=== PATIENT | male | born 1950 | race Caucasian/White ===

== ENCOUNTER 2020-08-28 05:31 | Inpatient (IN) ==
--- NOTE | 2020-08-01 14:41 | PAT Medication Instructions ---
Medication Instructions Date of Service August 01, 2020 Home Medications Medication Instructions Recorded clobetasol 0.05 % topical ointment 1 appln TOP BID PRN #30 gm 08/26/19 ascorbic acid (vitamin C) 500 mg capsule 500 mg PO QPM aspirin 81 mg tablet,delayed release 81 mg PO QAM cholecalciferol (vitamin D3) 50 mcg (2,000 unit) capsule 2,000 units PO QPM multivitamin 1 tab PO QAM clobetasol 0.05 % topical ointment 1 appln TOP BID PRN amoxicillin 500 mg tablet 2,000 mg PO ONCE mecobalamin (vitamin B12) 1,000 mcg disintegrating tablet,sublingual 500 mcg SUBLINGUAL QPM triamcinolone acetonide 0.1 % topical cream 1 appln TOP TID PRN zinc 50 mg tablet 50 mg PO QPM ibuprofen 400 - 600 mg PO Q6H PRN losartan-hydrochlorothiazide 1 tab PO QAM Continue as directed amoxicillin 500 mg tablet 2,000 mg PO ONCE ASK your surgeon for instructions aspirin 81 mg tablet,delayed release 81 mg PO QAM ibuprofen 400 - 600 mg PO Q6H PRN STOP taking 24 hours before surgery clobetasol 0.05 % topical ointment 1 appln TOP BID PRN triamcinolone acetonide 0.1 % topical cream 1 appln TOP TID PRN DO NOT take the morning of surgery multivitamin 1 tab PO QAM losartan-hydrochlorothiazide 1 tab PO QAM Take evening before surgery ascorbic acid (vitamin C) 500 mg capsule 500 mg PO QPM cholecalciferol (vitamin D3) 50 mcg (2,000 unit) capsule 2,000 units PO QPM mecobalamin (vitamin B12) 1,000 mcg disintegrating tablet,sublingual 500 mcg SUBLINGUAL QPM zinc 50 mg tablet 50 mg PO QPM NOTHING TO EAT OR DRINK AFTER MIDNIGHT Other Notes If you have any questions please call us at [phone] or [phone] or [phone] or [phone]
--- NOTE | 2020-08-02 08:54 | Anesthesiology Consultation ---
Date of Service August 02, 2020 Assessment & Plan (1) Encounter for pre-operative examination: COVID Status: As of 08/02 assessment, patient denies travel to endemic area, known exposure/sick contacts, or symptoms of COVID19. Patient instructed that they and their household members must follow strict social distancing guidelines, wear a mask in public and avoid travel/events/gatherings for 14 days prior to surgery (pt reports small gathering with immediate family only for t hanksgiving, no travel, <8 people). Preoperative COVID19 testing to be completed prior to surgery per surgeon's arrangements. Patient made aware to self-isolate as much as possible between COVID testing and surgery. Chart Review Chart Review: Acceptable Risk for Surgery and Patient seen in Pre Admission Testing Teaching & Discussion Instructed NPO after midnight before surgery, except medications with 15 cc of water. Medication instructions provided according to the PAT guidelines. History Surgery Operation Date: 08/24/20 07:30 Proposed Procedures p Robotic Laparoscopic Assisted Radical Retropubic Prostatectomy, Possible Open, Possible Pelvic Lymph Node Dissection, Possible Suprapubic Tube Placement - Guy Jones, Height/Weight Height: 6 ft Weight: 96.6 kg Allergies Allergy/AdvReac Type Severity Reaction Status Date / Time Sulfa (Sulfonamide Allergy Intermediate HIVES, Verified 07/21/20 09:05 Antibiotics) JOINT STIFFNESS Medications Home Medications Medication Instructions Recorded Confirmed Last Taken ascorbic acid (vitamin C) 500 mg 500 mg PO QPM cap 10/08/18 07/21/20 Unknown capsule aspirin 81 mg tablet,delayed 81 mg PO QAM 10/08/18 07/21/20 Unknown release cholecalciferol (vitamin D3) 50 2,000 units PO QPM 10/08/18 07/21/20 Unknown mcg (2,000 unit) capsule multivitamin 1 tab PO QAM 02/17/19 07/21/20 Unknown clobetasol 0.05 % topical ointment 1 appln TOP BID PRN #30 gm 08/26/19 07/21/20 Unknown amoxicillin 500 mg tablet 2,000 mg PO ONCE tab 05/30/20 07/21/20 Unknown mecobalamin (vitamin B12) 1,000 500 mcg SUBLINGUAL QPM tab 05/30/20 07/21/20 Unknown mcg disintegrating tablet,sublingual triamcinolone acetonide 0.1 % 1 appln TOP TID PRN gm 05/30/20 07/21/20 Unknown topical cream zinc 50 mg tablet 50 mg PO QPM 05/30/20 07/21/20 Unknown ibuprofen 400 - 600 mg PO Q6H PRN 07/21/20 07/21/20 Unknown losartan-hydrochlorothiazide 1 tab PO QAM 07/21/20 07/21/20 Unknown Past Medical History Medical History Allergic contact dermatitis Mild on lower extremities, comes and goes. Atopic dermatitis Chronic venous stasis dermatitis of both lower extremities Diverticulosis Elevated PSA Herniated intervertebral disc of lumbar spine Hyperlipemia No meds currently Hypertension Osteoarthritis Prostate CA Diagnosed 08/25/18 - Deya 3+3 Vitamin D deficiency Exercise / Class Metabolic Activity II 4-5 Yardwork/Stairs/Walk up hill Past Family History Family History Mother , Passed age 86 of [place] Myocardial infarction Father , Passed age 89 of CHF CHF (congestive heart failure) Arthritis Hypertension Brother No problems noted. Brother No problems noted. Brother No problems noted. Sister Thrombocythemia, essential "preleukemia" Bone marrow disorder Son No problems noted. Daughter No problems noted. Past Surgical History Surgical History History of colonoscopy MULTIPLE History of hernia repair 10/2010 Left inguinal hernia repair History of total hip replacement Right - 04/20/2010, Left 07/27/2010 Past Anesthesia History No Hx of Anesthesia Complications and No Family Hx of Anesthesia Complications History of PONV No Hx of PONV and No Hx of Motion Sickness Social History Smoking Status: Never smoker Do You Dip or Chew Tobacco: No Hx Alcohol Use: No Hx Substance Use: No Review of Systems Pt denies any recent chest pain, shortness of breath, palpitations, fever, URI, or uncontrolled acid reflux. +mild dry cough in AM, pt feels may be 2/2 wood burning stove/dry air Physical Exam Vital Signs BP: 133/82 P: 77bpm SPO2: 95% RA T: 98.2 F R: 12 ENMT Mouth: no dental restorations, no chipped teeth and no loose teeth Thyromental Distance: > or= 3.5 Finger Breadths Mallampati Class: II Neck normal visual inspection and + limited neck extension (mildly) Respiratory normal respiratory effort, lungs clear to auscultation Cardiovascular RRR, no murmur, no edema Testing Laboratory Results 08/02/20 08:20 08/02/20 09:06 Urine Color Yellow 08/02/20 08:20 Urine Appearance Clear (Clear) 08/02/20 08:20 Urine pH 5.5 (4.5-7.5) 08/02/20 08:20 Ur Specific [place] 1.023 (1.000-1.030) 08/02/20 08:20 Urine Protein Negative (Negative) 08/02/20 08:20 Urine Glucose (UA) Negative (Negative) 08/02/20 08:20 Urine Ketones Negative (Negative) 08/02/20 08:20 Urine Nitrite Negative (Negative) 08/02/20 08:20 Ur Leukocyte Esterase Negative (Negative) 08/02/20 08:20 08/02/20 08:20 Urine Culture - Final Urine,Clean Catch No growth - less than 1,000 colonies/mL. Electrocardiogram Date: 08/02/20 Findings: + NSR @ (72bpm) 1st degree AV block. No significant change from 2009 EKG. Chest X-Ray Date: 08/02/20 Findings: + NAD
--- NOTE | 2020-08-02 09:48 | XRay Report ---
XR chest Pre-admission PA/Lat HISTORY: Preop. COMPARISON: Chest 03/29/2010. FINDINGS: The lungs are clear. Cardiac silhouette is normal in size. No pleural effusions. No pneumot horax. IMPRESSION: No acute process. ACT 112: Negative or not required by law. Electronically signed by: Raymond Martin M.D. 08/02/2020 9:47 AM
[2020-08-02 10:36] LABS: Basophils # (auto) 0.03 K/uL (0-0.2); Basophils % (auto) 0.5 %; Eosinophils # (auto) 0.24 K/uL (0-0.5); Eosinophils % (auto) 4.4 %; Hematocrit (blood only) 44.8 % (42-52); Hemoglobin 15.2 g/dL (14.0-18.0); Immature Granulocytes # (auto) 0.01 K/uL (0.00-0.02); Immature Granulocytes % (auto) 0.2 %; Lymphocytes # (auto) 1.64 K/uL (1.2-3.4); Lymphocytes % (auto) 29.8 %; Mean Corpuscular Hemoglobin 30.8 pg (25-34); Mean Corpuscular Hgb Conc 33.9 g/dL (32-36); Mean Corpuscular Volume 90.9 fL (80-100); Mean Platelet Volume 12.8 fL (7.4-10.4); Monocytes # (auto) 0.86 K/uL (0.11-0.59); Monocytes % (auto) 15.6 %; Neutrophils # (auto) 2.72 K/uL (1.4-6.5); Neutrophils % (auto) 49.5 %; Platelet Count 160 K/uL (130-400); RDW Coefficient of Variation 13.3 % (11.5-14.5); RDW Standard Deviation 43.8 fL (36.4-46.3); Red Blood Count 4.93 M/uL (4.7-6.1)
[2020-08-02 10:38] LABS: Appearance Urine Clear (Clear); Bilirubin Urine Negative (Negative); Blood Urine Negative (Negative); Color Urine Yellow; Glucose Urine UA Negative (Negative); Ketones Urine Negative (Negative); Leukocyte Esterase Urine Negative (Negative); Nitrite Urine Negative (Negative); Protein Urine Negative (Negative); Specific Gravity Urine 1.023 (1.000-1.030); Urobilinogen Urine Negative (Negative); pH Urine 5.5 (4.5-7.5)
[2020-08-02 10:46] LABS: BUN Creatinine Ratio 20.2 (10-20); Creatinine Clr Calc Pharmacy 88.8 ml/min; Est GFR (African American) 96.6; Est GFR (Non-African American) 83.4; Potassium 3.8 mmol/L (3.5-5.1)
--- NOTE | 2020-08-02 21:33 | Electrocardiogram Report ---
Test Reason : Blood Pressure : / mmHG Vent. Rate : 072 BPM Atrial Rate : 072 BPM P-R Int : 216 ms QRS Dur : 094 ms QT Int : 376 ms P-R-T Axes : 044 030 045 degrees QTc Int : 411 ms Sinus rhythm with 1st degree A-V block Otherwise normal ECG When compared with ECG of 29-MAR-2010 12:01, No significant change was found Confirmed by Ronni Prado ([id number]) on 08/02/2020 9:33:06 PM Referred By: Guy Jones Confirmed By:Ronni Prado
[~2020-08-28 05:31] MED LIST: HEPARIN SOD 5,000 UNIT/0.5 ML VIAL SQ SCH; LACTATED RINGER'S 1,000 ML IV SCH; LR 500ML BOLUS, THEN 15ML/HR IV SCH; ceFAZolin 2000MG 2,000 MG/15 ML SYR IV SCH
[2020-08-28] MEDS ORDERED: HEPARIN SOD 5,000 UNIT/0.5 ML VIAL ONE (05:43)
[2020-08-28] MEDS ORDERED: ceFAZolin 2,000 MG/15 ML IV PUSH IV ONE (05:44)
[2020-08-28] MEDS ORDERED: LACTATED RINGER'S 1,000 ML IV SCH (06:00)
[2020-08-28] MEDS ORDERED: HEPARIN SOD 5,000 UNIT/0.5 ML VIAL SQ SCH (06:00)
[2020-08-28] MEDS ORDERED: ceFAZolin 2000MG 2,000 MG/15 ML SYR IV SCH (06:00)
[2020-08-28] MEDS ORDERED: BUPIVACAINE 0.5 % 5 MG/1 ML MPF 30ML VIAL ONE (07:03)
[2020-08-28] MEDS ORDERED: PROPOFOL IV EMULSION 10 MG/ML 20 ML VIAL IV ONE (07:03)
[2020-08-28] MEDS ORDERED: GLYCOPYRROLATE 0.2 MG/ML VIAL ONE (07:03)
[2020-08-28] MEDS ORDERED: LIDOCAINE HCL 2% 2 ML VIAL/AMP(20MG/ML) INFIL ONE (07:03)
[2020-08-28] MEDS ORDERED: fentaNYL citrate 100 MCG/2 ML VIAL ONE (07:03)
[2020-08-28] MEDS ORDERED: NEOSTIGMINE METHYLSULFATE 5 MG/5 ML SYR ONE (07:03)
[2020-08-28] MEDS ORDERED: DEXAMETHASONE SOD INJ 4 MG/ML VIAL ONE (07:03)
[2020-08-28] MEDS ORDERED: ONDANSETRON INJ 2 MG/ML 2 ML VIAL ONE (07:03)
[2020-08-28] MEDS ORDERED: MIDAZOLAM HCL 1 MG/ML 2ML VIAL ONE (07:03)
--- NOTE | 2020-08-28 07:18 | History & Physical Report ---
Date of Service August 28, 2020 Assessment & Plan (1) Adenocarcinoma of prostate: Risks and benefits discussed at length for procedure. These include bleeding, infection, injury to surrounding tissues or organs, and risks associated with anesthesia. Patient states understanding and agrees to proceed. Will sign consent and proceed. Robot Asst. Laparoscopic Radical prostatectomy with pelvic lymph node dissection. See office notes for full discussion. History of Present Illness Primary Care Provider: Oneal Rosales MD Patient here for procedure. No changes in medical issues. No major changes in urinary issues. Continued issues and concerns. No change in pain or discomfort. No severe fevers or chills. No chest pain or shortness of breath. Risks and benefits discussed at length for procedure. These include bleeding, infection, injury to surrounding tissues or organs, and risks associated with anesthesia. Patient and/or family states understanding and agrees to proceed. Consent and supporting information completed. Allergies Allergy/AdvReac Type Severity Reaction Status Date / Time Sulfa (Sulfonamide Allergy Intermediate HIVES, Verified 08/21/20 09:40 Antibiotics) JOINT STIFFNESS Home Medications Medication Instructions Recorded Confirmed Type ascorbic acid (vitamin C) 500 mg 500 mg PO QPM cap 10/08/18 08/28/20 History capsule aspirin 81 mg tablet,delayed 81 mg PO QAM 10/08/18 08/28/20 History release cholecalciferol (vitamin D3) 50 2,000 units PO QPM 10/08/18 08/28/20 History mcg (2,000 unit) capsule multivitamin 1 tab PO QAM 02/17/19 08/28/20 History clobetasol 0.05 % topical ointment 1 appln TOP BID PRN #30 gm 08/26/19 08/28/20 Rx amoxicillin 500 mg tablet 2,000 mg PO ONCE tab 05/30/20 08/28/20 History mecobalamin (vitamin B12) 1,000 500 mcg SUBLINGUAL QPM tab 05/30/20 08/28/20 History mcg disintegrating tablet,sublingual triamcinolone acetonide 0.1 % 1 appln TOP TID PRN gm 05/30/20 08/28/20 History topical cream zinc 50 mg tablet 50 mg PO QPM 05/30/20 08/28/20 History ibuprofen 400 - 600 mg PO Q6H PRN 07/21/20 08/28/20 History losartan-hydrochlorothiazide 1 tab PO QAM 07/21/20 08/28/20 History ciprofloxacin HCl 500 mg tablet 500 mg PO BID #20 tab 08/21/20 Rx Past Med/Surg History Medical History Allergic contact dermatitis Mild on lower extremities, comes and goes. Atopic dermatitis Chronic venous stasis dermatitis of both lower extremities Diverticulosis Elevated PSA Herniated intervertebral disc of lumbar spine Hyperlipemia No meds currently Hypertension Osteoarthritis Prostate CA Diagnosed 08/25/18 - Deya 3+3 Vitamin D deficiency Surgical History H/O bilateral hip replacements History of colonoscopy MULTIPLE History of hernia repair 10/2010 Left inguinal hernia repair History of total hip replacement Right - 04/20/2010, Left 07/27/2010 Family History Mother , Passed age 86 of [place] Myocardial infarction Father , Passed age 89 of CHF CHF (congestive heart failure) Arthritis Hypertension Brother No problems noted. Brother No problems noted. Brother No problems noted. Sister Thrombocythemia, essential "preleukemia" Bone marrow disorder Son No problems noted. Daughter No problems noted. 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 No Acute illness. . HEENT: Inspection normal. Normal inspection of face. Normal inspection of neck. Psychologic: Normal affect/No change in mentation. Respiratory: No use of accessory muscles. No respiratory changes or exacerbation or changes with tachypnea or dyspnea. Cardiovascular: No tachycardia Skin: [place] and Dry. No new rashes or visible lesions. Abdomen: Normal inspection. No guarding. Results & Data ([facility]) Vital Signs (Past 12 Hours) Vital Signs Temp Pulse Resp BP Pulse Ox 08/28/20 06:06 36.6 C 80 18 128/80 96 PG Care Time/CCT Total # of Minutes Spent Total Time Spent with Patient: Total time spent is greater than 50% in coordination of care (as documented) at patient's floor/unit and/or counseling p atient: Coding Level of Care Code 42068 Initial Inpt Care Lvl 3 Diagnoses Adenocarcinoma of prostate C61
[2020-08-28] MEDS ORDERED: HYDROmorphone INJ 2 MG/ML SYR/VIAL ONE (08:10)
[2020-08-28] MEDS ORDERED: fentaNYL citrate 100 MCG/2 ML VIAL IV PRN (08:49)
[2020-08-28] MEDS ORDERED: METOCLOPRAMIDE HCL INJ 5 MG/ML 2 ML VIAL IV PRN (08:49)
[2020-08-28] MEDS ORDERED: PROMETHAZINE HCL 12.5 MG in SODIUM CHLORIDE 0.9% 50 ML IV PRN (08:49)
[2020-08-28] MEDS ORDERED: ePHEDrine sulfate 50 MG/ML AMP IV PRN (08:49)
[2020-08-28] MEDS ORDERED: ONDANSETRON INJ 2 MG/ML 2 ML VIAL IV PRN ×2 (08:49→12:57)
[2020-08-28] MEDS ORDERED: HYDROmorphone INJ 2 MG/ML SYR/VIAL IV PRN (08:49)
[2020-08-28] MEDS ORDERED: ATROPINE SULFATE 0.1 MG/ML 10ML SYR IV PRN (08:49)
[2020-08-28] MEDS ORDERED: ROCURONIUM BROMIDE 10 MG/ML 5 ML VIAL IV ONE (10:00)
--- NOTE | 2020-08-28 11:46 | Operative Report ---
PG Post Operative Report Pre & Post Diagnosis Operation Date: 08/28/20 07:30 Pre-Op Diagnosis: Prostate Cancer Post-Op Diagnosis: Prostate Cancer I identified the patient and participated in the time-out.: Yes Procedure Operation Date: 08/28/20 07:30 Actual Procedures p Robotic Laparoscopic Assisted Prostatectomy and Pelvic Lymph Node Dissection and extensive lysis of adhesions. - Guy Jones DO Surgeon Guy Jones, II, DO Transport Assistant Kirt VARGAS Estimated Blood Loss 30 Findings Consistent with Post-Op Diagnosis Extensive Adhesions to mesh plug in left inguinal cannel. Specimens Prostate and Seminal Vesicle Left Pelvic Lymph Nodes Right Pelvic Lymph Nodes. Drains 20 Cueto catheter. Anesthesia Type General Complications none Disposition Disposition: Recovery Room Indications Patient with Prostate Cancer. Risk and benefits were discussed at length. Patient elected to undergo robotic assisted laparoscopic Radical Prostatectomy. Description of Procedure The patient was brought to the operative suite and placed under general endotracheal intubation anesthesia in the supine position. The patient was transferred to the dorsal lithotomy position. At this point, the patient prepped and draped in the usual sterile fashion and a timeout was completed. Preoperative antibiotics of Ancef 2 grams had been given. DALI's and SCD's were placed on the patient's lower extremities. A catheter was placed using sterile technique. With the time out completed the patient was placed into Trendelenburg and the skin at the umbilicus was anesthetized. A small incision was made superior to the umbilicus. A Varess Needle was placed and confirmed to be in the abdominal cavity. Water drop test passed. The Abdominal cavity was insufflated to 15 mmHG. The camera port was then placed. A laparoscopic camera was placed into the port and the abdominal cavity inspected. No concerning features were noted. At this point, the skin was marked for port placement and 8mm working ports were placed. The skin was anesthetized down to fascia and an approx 1cm incision was made to place the 3 x 8mm ports. A 12 mm and 5 mm assistant corporation counsel ports were also placed in similar fashion under direct visualization. The patient was transferred into steep Trendelenburg position and the legs lowered. The robot was positioned and docked. The camera was placed and all trocars were positioned under direct visualization. Aretha VARGAS was integral in port placement, camera utilization, and docking procedure. She remained in sterile attire and then proceeded to assist the remainder of the case. At this point, I transitioned to the robotic console. At this point, the sigmoid colon was mobilized superiorly and the pelvis assessed. Adhesions were freed to allow mobilization. A significant amount of adhesions was noted to the mesh blood coming from an inguinal hernia repair on the left side. Blunt dissection was utilized to free these. Greater than 35 minutes required for complete lysis and mobilization of colon prior to beginning the remainder of the case. The peritoneum in the midline was opened between rectum and bladder and the vas deferens and seminal vesicles exposed. These were dissected with blunt technique. The vas was clipped and cut and mobilized. Cautery was used to assist dissection avoiding the tissue posteriorly near the rectum. The tissues lateral to the seminal vesicles were clipped with a hemolock and all bleeding controlled. This was taken as inferior as possible from this position. The medial umbilical ligaments were then identified and the peritoneum directly lateral on the right followed by the left was opened. The tissues were bluntly dissected to free the bladder's lateral attachments. This was taken down to the pubic bone and exposed the endopelvic fascia bilaterally. The medial ligaments were cut and the bladder dropped. The tissues was dissected anterior to the prostate. The endopelvic fascia on each side was then opened and the lateral edges of the prostate dissected. The Dorsal venous complex of the prostate was dissected and assessed. A 2-0 suture was used to ligate the vessels. A suspension stitch was used and clipped. Electrocautery was used to cut the anterior attachments, the puboprostatic ligaments, and venous tissues. The cueto was manipulated to better visual the bladder neck and dissection was taken using electrocautery. The bladder neck was opened and dissected from the prostate. The UO's were identified and dissection taken in a direction to avoid each side. The vas stump and seminal vesicles were exposed and used to assist in traction to dissect. The prostatic pedicles were better exposed. The posterior prostate was dissected. An attempt was made to limit cautery and utilize cold dissection of the lateral posterior prostate to attempt preservation of the neurovascular bundle bilaterally. Hemolock clips were utilized to clip the prostatic pedicle bilaterally. The dissection was taken to the apex of the prostate. The anterior prostate was released and the urethra exposed. Cold cutting was used to open the anterior portion and expose the catheter. This was removed and the urethra incised. The prostate was further freed and grasped and removed from the field. The entire dissection bed was inspected.Hemostatic agent was placed in the region. No areas of injury or bleeding was noted. Care was taken to examine the perirectal tissues. A probe was placed and no injuries or other issues were observed. The bladder neck and urethra were then approximated with a running barbed suture starting at the 5 o'clock position and moving to the 12 o'clock on each side. This was tied at the anterior portion. A leak test was completed without any evidence of issues. The right and left pelvic lymph tissue was identified in relation to the iliac vessels. Distal dissection was taken to the Node of [place]. Inferiorly the obtorator vessels and nerve were identified. Lymphatic tissue within the surround fat tissue was dissected. This packet of tissues were sent for pathologic analysis and lymph node assessment. This was done for each separate side. Hemostatic agent was placed on the exposed vessels. The entire dissection space was inspected one final time. No bleeding or injuries or areas of concern were noted. No tumor or other concerning features were noted. At this point, the robot was undocked and moved away from the patient. The patient was taken out of Trendelenberg. The port sites were all assessed laparoscopically. The endoscopic bag was moved into the midline port. The 10mm port site was closed with the Iván Delatorre device. The other ports were assessed and no issues observed. The umbilical incision was opened further exposing fascia which was then opened in order to removed the prostate in the bag. The prostate was removed. A running PDS suture was used to close fascia. The skin at each site was closed with catina. The area was cleaned and bandages placed on each incision. The patient was cleaned and bandaged, aroused from anesthesia, and transferred to the pacu in stable condition having tolerated the procedure well with no complications. I was present and participated in all aspects of the procedure. Aretha VARGAS was critical in the portions as mentioned above. Will plan to observe postoperatively and monitor. Cueto to be remain in place until followup. I attest to the content of the Intraoperative Record and any orders documented therein. Any exceptions are noted below.
[2020-08-28 12:15] LABS: Basophils # (auto) 0.01 K/uL (0-0.2); Basophils % (auto) 0.1 %; Eosinophils # (auto) 0.03 K/uL (0-0.5); Eosinophils % (auto) 0.2 %; Hematocrit (blood only) 41.8 % (42-52); Hemoglobin 14.3 g/dL (14.0-18.0); Immature Granulocytes # (auto) 0.03 K/uL (0.00-0.02); Immature Granulocytes % (auto) 0.2 %; Lymphocytes # (auto) 1.16 K/uL (1.2-3.4); Lymphocytes % (auto) 7.4 %; Mean Corpuscular Volume 90.5 fL (80-100); Mean Platelet Volume 12.2 fL (7.4-10.4); Monocytes # (auto) 0.54 K/uL (0.11-0.59); Monocytes % (auto) 3.4 %; Neutrophils # (auto) 13.96 K/uL (1.4-6.5); Neutrophils % (auto) 88.7 %; Platelet Count 156 K/uL (130-400); RDW Coefficient of Variation 13.5 % (11.5-14.5); RDW Standard Deviation 44.3 fL (36.4-46.3); Red Blood Count 4.62 M/uL (4.7-6.1); White Blood Count 15.73 K/uL (4.8-10.8)
[2020-08-28 12:22] LABS: Mean Corpuscular Hgb Conc 34.2 g/dL (32-36)
[2020-08-28 12:24] LABS: Calcium 8.3 mg/dl (8.5-10.1); Creatinine Clr Calc Pharmacy 68.9 ml/min; Est GFR (African American) 79.6; Est GFR (Non-African American) 68.7; Potassium 3.4 mmol/L (3.5-5.1)
[2020-08-28] MEDS ORDERED: ACETAMINOPHEN 325 MG TAB PO PRN (12:57)
[2020-08-28] MEDS ORDERED: MoRPHine SULFATE 2 MG/ML CARP IV PRN (12:57)
[2020-08-28] MEDS ORDERED: oxyCODONE HCL IR 5 MG TAB (IMMEDIATE RELEASE) PO PRN (12:57)
--- NOTE | 2020-08-28 13:22 | Anesthesiology Progress Note ---
Date of Service August 28, 2020 Anesthesia Post Procedure Vital Signs Vital Signs: Temp Pulse Pulse Pulse Resp BP Pulse Ox 08/28/20 13:17 36.4 C L 80 16 155/83 H 93 08/28/20 12:45 36.4 C L 80 16 153/84 H 92 08/28/20 12:30 85 15 150/77 H 94 08/28/20 12:15 36.4 C L 83 16 150/86 H 93 08/28/20 12:05 89 16 136/93 94 08/28/20 11:55 97 H 16 117/78 94 08/28/20 11:48 36.5 C 106 H 12 125/80 93 08/28/20 06:06 36.6 C 80 18 128/80 96 Transfer of Care Handoff Completed per policy Notes Mental Status: alert / awake / arousable and participated in evaluation Patient Amnestic to Procedure: Yes Nausea / Vomiting: adequately controlled Pain: adequately controlled Airway Patency, RR, SpO2: stable & adequate BP & HR: stable & adequate Hydration State: stable & adequate Anesthetic Complications: no major complications apparent
[2020-08-28] MEDS: LACTATED RINGER'S 1,000 ML IV SCH ×3 (14:06→23:21)
[2020-08-28] MEDS: ceFAZolin 2000MG 2,000 MG/15 ML SYR IV SCH ×2 (14:34→23:20)
[2020-08-28] MEDS: MoRPHine SULFATE 4 MG/ML 1 ML CARP\\VIAL IV PRN ×2 (15:40→22:11)
[2020-08-28 15:59] VITALS: O2SAT 91
[2020-08-28] MEDS: HEPARIN SOD 5,000 UNIT/0.5 ML VIAL SQ SCH (20:41)
[2020-08-28] MEDS ORDERED: CHOLECALCIFEROL 1,000 UNITS 25 MCG TAB PO SCH (21:00)
[2020-08-28] MEDS ORDERED: ASCORBIC ACID 500 MG TAB PO SCH (21:00)
[2020-08-28] MEDS ORDERED: NON-FORMULARY MEDICATION (Mecobalamin (Vitamin B12) 1,000 mcg tablet,disintegrating) SL SCH (21:00)
[2020-08-28] MEDS: SIMETHICONE 80 MG CHEW PO PRN (22:38)
[2020-08-29 03:12] VITALS: TEMP 98.1
[2020-08-29 06:49] LABS: Basophils # (auto) 0.01 K/uL (0-0.2); Basophils % (auto) 0.1 %; Eosinophils # (auto) 0.02 K/uL (0-0.5); Eosinophils % (auto) 0.2 %; Hemoglobin 12.3 g/dL (14.0-18.0); Immature Granulocytes # (auto) 0.01 K/uL (0.00-0.02); Immature Granulocytes % (auto) 0.1 %; Lymphocytes # (auto) 1.42 K/uL (1.2-3.4); Lymphocytes % (auto) 15.9 %; Mean Corpuscular Hemoglobin 30.9 pg (25-34); Mean Corpuscular Hgb Conc 34.2 g/dL (32-36); Mean Corpuscular Volume 90.5 fL (80-100); Mean Platelet Volume 12.2 fL (7.4-10.4); Monocytes # (auto) 1.77 K/uL (0.11-0.59); Monocytes % (auto) 19.8 %; Neutrophils # (auto) 5.71 K/uL (1.4-6.5); Neutrophils % (auto) 63.9 %; Platelet Count 149 K/uL (130-400); RDW Coefficient of Variation 13.5 % (11.5-14.5); RDW Standard Deviation 44.8 fL (36.4-46.3); Red Blood Count 3.98 M/uL (4.7-6.1); White Blood Count 8.94 K/uL (4.8-10.8)
[2020-08-29] MEDS: oxyCODONE HCL IR 5 MG TAB (IMMEDIATE RELEASE) PO PRN ×2 (07:07→14:50)
[2020-08-29 07:23] LABS: BUN Creatinine Ratio 13.8 (10-20); Calcium 8.3 mg/dl (8.5-10.1); Est GFR (African American) 104.2; Est GFR (Non-African American) 89.9; Potassium 3.9 mmol/L (3.5-5.1)
[2020-08-29 08:06] VITALS: BP 126/63
[2020-08-29] MEDS: HEPARIN SOD 5,000 UNIT/0.5 ML VIAL SQ SCH ×2 (08:16→09:44)
[2020-08-29] MEDS ORDERED: MULTIVITAMIN TAB PO SCH (09:00)
[2020-08-29] MEDS ORDERED: LOSARTAN/HCTZ 50/12.5MG TAB PO SCH (09:00)
[2020-08-29] MEDS: LACTATED RINGER'S 1,000 ML IV SCH (09:09)
--- NOTE | 2020-08-29 09:43 | Urology Progress Note ---
Date of Service August 29, 2020 Assessment & Plan (1) Adenocarcinoma of prostate: 70 yo M POD #1 s/p Robotic Laparoscopic Assisted Prostatectomy and Pelvic Lymph Node Dissection with Dr. Jones. - Doing well, progressing as expected - Afebrile, labs reviewed and as expected - Surgical incisions appropriate - Maintain Shaw catheter - Encouraged OOB ambulation in hallway, incentive spirometer - Tolerating clear liquid diet this AM. Given belching and bloating, will slowly advance diet to full liquids at lunch and monitor - Expected clinical course reviewed, all questions answered - Follow-up appointments in place - Will reassess later this afternoon and plan for discharge to home with Shaw catheter if he continues to progress, either later today or tomorrow pending reassessment Admission and Anticipated Discharge Date Admission Date: August 28, 2020 Subjective 70 yo M POD #1 s/p Robotic Laparoscopic Assisted Prostatectomy and Pelvic Lymph Node Dissection with Dr. Jones. Pt seen and examined at bedside this AM. Awake, alert, and sitting up in bed eating breakfast. Reports some upper abdominal discomfort, bloating and belching last night and today. Was given PRN Simethicone yesterday with some relief. Denies flatus or BM. Tolerated clear liquid diet, no nausea or vomiting. No chest pain or shortness of breath. Mild incisional pain. Utilized PO oxycodone 10 mg this morning and reports relief. Shaw catheter intact, patent and draining clear pink tinged urine. Tolerating Shaw catheter. Has been OOB standing, but has not ambulated hallway yet. No fever or chills. No additional concerns today. Chart review: Afebrile. Creatinine 0.80, Hgb 12.3, WBC 8.94 Review of Systems Constitutional: as per Subjective / HPI Respiratory: as per Subjective / HPI Cardiovascular: as per Subjective / HPI Gastrointestinal: as per Subjective / HPI Genitourinary: + as per Subjective / HPI Physical Exam Constitutional: well developed and well nourished; no acute distress and not ill appearing Respiratory: normal respiratory effort and able to speak in complete sentences; no respiratory distress and no labored breathing Cardiovascular: Extremities: no calf tenderness and no pedal edema SCDs in place Gastrointestinal (Abdomen): Inspection/Auscultation: abdomen normal to inspection and + abdomen distended (Mild distention mid to upper abdomen) Percussion/Palpation: + abdomen tender (mild tenderness near incisions and mid to upper abdomen) and abdomen soft; no guarding Musculoskeletal: Head/Neck/Chest: normocephalic and head atraumatic Extremities: extremities normal to inspection Skin: Surgical incisions: dressings C/D/I. Incisions well approximated, catina intact. No erythema, warmth or drainage. Neurologic: moves all extremities and awake Psychiatric: Orientation: alert and oriented x 3 Genitourinary: Shaw catheter intact, patent and draining clear pink tinged urine. Results & Data ([facility]) Vital Signs (Past 12 Hours) Vital Signs Temp Pulse Resp BP Pulse Ox 08/29/20 08:05 36.7 C 71 16 126/63 91 08/29/20 03:11 36.7 C 77 18 122/67 91 08/28/20 23:29 36.5 C 75 18 124/59 L 91 PG Care Time/CCT Total # of Minutes Spent Total Time Spent with Patient: Total time spent is greater than 50% in coordination of care (as documented) at patient's floor/unit and/or counseling patient: Coding Level of Care Code 57671 Subseq Hosp Care Lvl 2 Diagnoses Adenocarcinoma of prostate C61
[2020-08-29] MEDS: SIMETHICONE 80 MG CHEW PO PRN (10:55)
[2020-08-29 17:05] VITALS: PULSE 85
--- NOTE | 2020-08-30 13:59 | Discharge Summary ---
Date of Service August 30, 2020 Admission HPI Per Admitting Provider Patient here for procedure. No changes in medical issues. No major changes in urinary issues. Continued issues and concerns. No change in pain or discomfort. No severe fevers or chills. No chest pain or shortness of breath. Risks and benefits discussed at length for procedure. These include bleeding, infection, injury to surrounding tissues or organs, and risks associated with anesthesia. Patient and/or family states understanding and agrees to proceed. Consent and supporting information completed. Admission Exam Per Admitting Provider See H&P Principal Diagnosis Prostate Cancer Discharge Exam General: Alert in no acute distress. HEENT: Normocephalic Atraumatic. Inspection normal. Psychologic: Normal affect. Skin: [place] and Dry. No rashes or visible lesions. Abdomen: Soft Non-distended. No rebound or guarding. Discharge Data Allergies Allergy/AdvReac Type Severity Reaction Status Date / Time Sulfa (Sulfonamide Allergy Intermediate HIVES, Verified 08/21/20 09:40 Antibiotics) JOINT STIFFNESS Procedures Performed Operation Date: 08/28/20 07:30 Actual Procedures p Robotic Laparoscopic Assisted Prostatectomy and Pelvic Lymph Node Dissection(Not Applicable) - Guy Jones, DO Hospital Course (1) Adenocarcinoma of prostate: 70 yo M POD #1 s/p Robotic Laparoscopic Assisted Prostatectomy and Pelvic Lymph Node Dissection with Dr. Jones. - Doing well, progressing as expected - Afebrile, labs reviewed and as expected - Surgical incisions appropriate - Maintain Shaw catheter - Encouraged OOB ambulation in hallway, incentive spirometer - Tolerating clear liquid diet this AM. Given belching and bloating, will slowly advance diet to full liquids at lunch and monitor - Expected clinical course reviewed, all questions answered - Follow-up appointments in place - Will reassess later this afternoon and plan for discharge to home with Shaw catheter if he continues to progress, either later today or tomorrow pending reassessment Total Time Total Time Spent Total Time Spent (In Minutes): 10 minutes Total Time Includes: Examination of the Patient, Discharge Planning, Medication Reconciliation and Communication With Other Providers Discharge Plan Discharge Items Patient Disposition: Home - Self-Care Reason For Visit: Prostate Cancer Discharge Diagnosis: Prostate Cancer Activity: Per Instructions section Lifting: No more than 25 pounds Bathing Comment: No tub baths or soaking, okay to shower tomorrow. Sexual Activity: Wait until after follow-up appointment Exercise/Sports: Wait until after follow-up appointment Driving/Machine Use: Do not drive while on narcotic pain medication Non-emergency contact: Surgeon and Urologist Call non-emergency contact if: you have any medication questions, your pain is not controlled, your temperature is above 101, your wound has increased redness, your wound has increased drainage and your wound pain has increased Follow-up/Referrals: Oneal Rosales III, MD [Primary Care Provider] - Guy Jones DO [Physician] - 09/12/20 2:15 pm (Dr. Jones will call between 9 am - 4 pm) [facility],Nurse [FAKE FOR SCHEDULES] - 09/05/20 1:40 pm Diet: Regular Addtl Attending Provider Instructions: Please take all medications as prescribed and keep all follow-ups as scheduled. Please call our office at [phone] with any questions, concerns or need to reschedule appointments for any reason. We are happy to assist you We have sent an antibiotic to your pharmacy of choice. Please begin antibiotic as prescribed the day BEFORE your scheduled voiding trial at [facility]. Please continue antibiotic every 12 hours through the day AFTER your voiding trial. Activity: We recommend having someone with you for the first few days after surgery to help care for you. For the first 2 weeks after surgery, we would like you to get up and walk around your house. However, we recommend limit physical activity that would increase your heart rate. This will allow your body to rest and heal. Take naps if you feel tired. Don't lift anything heavier than 25 pounds, mow the law or ride a bicycle until your follow-up appointment. Please avoid long car rides. Home Care: Unless directed otherwise, drink 6 to 8 glasses of water a day (enough to keep your urine light colored). This will also help keep a healthy flow of urine. We recommend using a stool softener for the first two weeks to avoid constipation. Shaw Catheter or Suprapubic Catheter care: Keep the catheter well secured with either a leg back or leg strap with large bag. Empty your bag when it's about half full. You may notice some blood in the bag. This is normal after surgery and while the catheter is in place. Use mild soap (such as Dove or Dial) and water to wash the catheter and the head of your penis daily, or more frequently if needed. Return to your normal diet, we encourage good protein intake to promote healing. You may shower as normal. Please avoid tub baths or soaking until catheter removed and incisions well healed. Wearing sweat pants while you have the catheter is recommended, they will be more comfortable. Follow-up Your follow up appointments for having your catheter removed, and follow up with your physician should already be scheduled. If you have any questions regarding this, please contact our office. Your final pathology report will be discussed at your physician follow-up appointment. Call [facility] at [phone] right away if you have any of the following: Chest pain or trouble breathing (call 911 or go to the hospital) Fever of 101F or higher, uncontrolled vomiting Heavy bleeding, clots, or bright red blood from the catheter Catheter that falls out or stops draining Foul-smelling discharge from your catheter Redness, swelling, warmth, or increased pain at your incision site Drainage, pus, or bleeding from your incision Pending Studies at Discharge: Yes Studies:: Pathology Stand-Alone Forms: My [facility] Hactus, Smoking Cessation Medications and DC Order Prescriptions: New oxycodone-acetaminophen [Percocet] 5-325 mg tablet 1 tab PO TID PRN (Reason: pain) Qty: 14 RF: 0 docusate sodium [Colace] 100 mg capsule 100 mg PO BID Qty: 60 RF: 0 ciprofloxacin HCl 500 mg tablet 500 mg PO BID 3 Days Qty: 6 RF: 0 Continued aspirin 81 mg tablet,delayed release (DR/EC) 81 mg PO QAM RF: 0 ascorbic acid (vitamin C) 500 mg capsule 500 mg PO QPM RF: 0 cholecalciferol (vitamin D3) 2,000 unit capsule 2,000 units PO QPM RF: 0 triamcinolone acetonide 0.1 % cream 1 appln TOP TID PRN (Reason: Rash) RF: 0 mecobalamin (vitamin B12) 1,000 mcg tablet,disintegrating 500 mcg sublingual QPM RF: 0 zinc 50 mg tablet 50 mg PO QPM RF: 0 clobetasol 0.05 % ointment 1 appln TOP BID PRN (Reason: allergic contact dermatitis) Qty: 30 RF: 3 multivitamin [Daily Multi-Vitamin] tablet 1 tab PO QAM RF: 0 losartan-hydrochlorothiazide 50-12.5 mg tablet 1 tab PO QAM RF: 0 Discontinued amoxicillin 500 mg tablet 2,000 mg PO ONCE RF: 0 ciprofloxacin HCl 500 mg tablet 500 mg PO BID Qty: 20 RF: 0 ibuprofen 200 mg Capsule 400 - 600 mg PO Q6H PRN (Reason: Pain) RF: 0 Discharge Orders: Discharge Order (Routine); Ordered 08/29/20 Ordered By: Ivana Meyer/Other Patient Handouts: Discharge Instructions Caring for ..., Acetaminophen Oxycodone tablets Admission Data Admit Date/Time: 08/28/20 11:45 Attending Provider: Guy Jones Admit Provider: Guy Jones Primary Care Provider: Oneal Rosales III Other Interventions: Discharge Summary Assessment (RN) Last Done: 08/29/20 17:03 Coding Level of Care Code D/C Day Management <30 mins Diagnoses Adenocarcinoma of prostate C61
== END 2020-08-29 15:00 | disposition home or self-care (01) | DRG 708 ==
LOC: ASU 05:31 → 3N 11:45

== ENCOUNTER 2025-06-18 12:33 | Inpatient (IN) ==
[2025-06-18 13:59] LABS: Hematocrit (blood only) 41.0 % (42.0-52.0); Hemoglobin 13.5 g/dl (14.0-18.0); Immature Granulocytes # (auto) 0.02 K/uL (0.01-0.20); Immature Granulocytes % (auto) 0.3 %; Mean Corpuscular Hemoglobin 29.8 pg (25.0-34.0); Mean Corpuscular Volume 90.5 fL (80.0-100.0); Platelet Count 199 K/uL (130-400); RDW Standard Deviation 43.6 fL (36.4-46.3); Red Blood Count 4.53 M/uL (4.70-6.10); White Blood Count 6.32 K/ul (4.8-10.8)
[2025-06-18] MEDS: CETIRIZINE HCL 10 MG TABLET PO ONE ×2 (14:00→20:33)
[2025-06-18] MEDS: cefTRIAXone SODIUM 2,000 MG/50 ML BAG IV SCH (14:08)
[2025-06-18 14:17] LABS: Alanine Aminotransferase 13.0 U/L (7-52); Albumin Globulin Ratio 1.4 (0.9-2); Albumin Level 4.0 gm/dl (3.4-5.0); Alkaline Phosphatase 103.0 U/L (34-104); Anion Gap 7.0 (3-11); Bilirubin,Total 0.6 mg/dl (0.2-1.0); Blood Urea Nitrogen 29.0 mg/dl (6-23); Calcium 9.1 mg/dl (8.6-10.3); Carbon Dioxide 29.0 mmol/L (21-32); Chloride 100.0 mmol/L (98-107); Creatinine Clr Calc Pharmacy 88.1 ml/min; Globulin 2.8 gm/dl (2.5-4.0); Glucose 103.0 mg/dl (70-99(Fasting)); Potassium 3.9 mmol/L (3.5-5.1); Sodium 136.0 mmol/L (136-145); Total Protein 6.8 gm/dl (6.0-8.3)
--- NOTE | 2025-06-18 15:05 | Emergency Department Note ---
Impression & Plan Leg wound, right, Cellulitis, Allergic reaction ED Provider Note NAME: CASSIDY GASPAR AGE: 75 SEX: M : 1950 ARRIVES VIA: Walk-In INFORMANT: Patient, ED PROVIDER(S): Shiv Bermudez MD CHIEF COMPLAINT: Allergic reaction HPI: This is a 75-year-old male presents for allergic reaction. Patient was seen here 2 days ago by myself for angioedema like related to losartan. Patient was switched from Keflex to doxycycline for suspected failure of Keflex due to patient's right lower extremity wound. Patient took 2 doses of doxycycline and a second dose had itching, rash and hives. Patient took Benadryl with some relief of symptoms. Patient is taking hydrocortisone cream onto skin as well for symptom relief. Reports no shortness of breath. No lip swelling or tongue swelling. No shortness of breath. Leg wound is still red with drainage and black central area. ROS: See above HPI for pertinent positives & negatives. A total of 10 systems reviewed and were otherwise negative. PAST MEDICAL HISTORY: See Below PAST SURGICAL HISTORY: See Below FAMILY HISTORY: See Below SOCIAL HISTORY: See Below HOME MEDICATIONS: See Below ALLERGIES: See Below VITALS: See Below PHYSICAL EXAMINATION: General: resting comfortably in no acute distress Head: Normocephalic and atraumatic Eyes: Normal inspection, extraocular muscles intact Ear, nose, throat: Normal external exam Neck: Normal range of motion Respiratory: lungs clear to auscultation bilaterally Cardiovascular: Regular rate/rhythm, no murmur GI: soft, nontender, no guarding or rebound Extremities: Area of black eschar to the anterior langley of the right lower extremity, surrounding erythema, thick drainage surrounding, no fluctuance Neuro: The patient awake and alert, appropriately conversive, no focal deficits, symmetric faces Skin: Scattered urticarial rash across upper extremity, abdomen, MEDICAL DECISION MAKING: This is a 75-year-old male presented for allergic reaction. Will give patient antihistamine here. Will avoid doxycycline in the future and add to allergy list. Otherwise patient still has fairly significant right lower extremity wound, this is malodorous, black eschar centrally with thick drainage at the edges with surrounding erythema. I am concerned outpatient failure at this time due to multiple week history of this. Not improving outpatient setting. - Bloodwork is reviewed showing no significant leukocytosis, anemia, electrolyte or creatinine abnormality -Discussed admission with the family, they are comfortable with inpatient stay at this time - Discussed care with Dr. Grant for admission Differential diagnosis: Worsening infection, allergic reaction, cellulitis, abscess, osteomyelitis Independent History obtained from: Diagnostics interpreted by me: ECG: None Cardiac Monitoring: An order was placed for continuous cardiac monitoring. The monitor shows a rate of 93 with sinus rhythm. 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 Impaired fasting glucose (Chronic) Hyperlipidemia (Chronic) Chronic venous stasis (Chronic) Incontinence (Chronic) Adenocarcinoma of prostate (Chronic) Hypertension (Chronic) Medical History Right clavicle fracture Diverticulosis Herniated intervertebral disc of lumbar spine Vitamin D deficiency Surgical History History of prostate surgery History of colonoscopy MULTIPLE History of total hip replacement Right - 04/20/2010, Left 07/27/2010 History of hernia repair 10/2010 Left inguinal hernia repair Family History Mother , Passed age 86 of [place] Myocardial infarction Father , Passed age 89 of CHF CHF (congestive heart failure) Arthritis Hypertension Brother No problems noted. Brother No problems noted. Brother No problems noted. Sister Thrombocythemia, essential "preleukemia" Bone marrow disorder Son No problems noted. Daughter No problems noted. 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 Feels Safe at Home: Yes Childhood Exposure to Second-Hand Smoke: Yes Diet: regular caffeine: Yes (20 oz BID) during the past year weight has: remained stable Dental Care, Regularly: Yes Physical Activity Frequency: 3-4 Times per Week Seatbelt Use: always Sunscreen Use: Yes Assistive Devices: None and Glasses Allergies Allergies Allergy/AdvReac Type Severity Reaction Status Date / Time doxycycline Allergy Intermediate Hives Verified 06/18/25 13:07 Sulfa (Sulfonamide Allergy Intermediate HIVES, Verified 06/15/25 15:32 Antibiotics) JOINT STIFFNESS oxybutynin AdvReac Unknown dry mouth, Verified 06/15/25 15:32 water retention, itchy, aggitated, low energy Home Meds Home Medications Medication Instructions Recorded Confirmed aspirin 81 mg tablet,delayed 81 mg PO QAM 10/08/18 06/18/25 release cholecalciferol (vitamin D3) 50 2,000 units PO QPM 10/08/18 06/18/25 mcg (2,000 unit) capsule multivitamin (Daily Multi-Vitamin 1 tab PO QAM 02/17/19 06/18/25 tablet) zinc 50 mg tablet 30 mg PO QPM 09/03/23 06/18/25 amoxicillin 500 mg capsule 2,000 mg PO UD PRN dental 06/16/25 06/18/25 appointment cephalexin 500 mg capsule 0 mg PO QID for 7 days 06/16/25 06/18/25 solifenacin 10 mg tablet 0 mg PO DAILY 06/16/25 06/18/25 diphenhydramine HCl 25 mg capsule 0 mg PO UD PRN Allergic Reaction 06/18/25 06/18/25 (Benadryl) doxycycline hyclate 100 mg capsule 0 mg PO BID 06/18/25 06/18/25 hydrocortisone 1 % lotion 0 applic topical UD PRN Other 06/18/25 06/18/25 Previous Rx's Medication Instructions Recorded clobetasol 0.05 % topical ointment 1 applic topical BID PRN allergic 08/13/24 contact dermatitis #30 grams losartan 100 1 tab PO DAILY #90 tabs 11/30/ mg-hydrochlorothiazide 25 mg tablet rosuvastatin 5 mg tablet 5 mg PO DAILY #90 tabs 03/25/25 triamcinolone acetonide 0.1 % 1 applic topical BID PRN Rash #15 01/21/25 topical cream grams Results & Data (ED) Vital Signs Vital Signs - 24 hr 06/18/25 12:42 06/18/25 13:59 06/18/25 14:33 Temperature 36.6 C Temperature Source Temporal Artery Scan Pulse Rate 90 Pulse Rate [Left Finger] 78 79 Respiratory Rate 18 16 16 Respiratory Effort / Characteristics Non-Labored Spontaneous Non-Labored Spontaneous Respiratory Depth Normal Normal Respiratory Pattern Regular Blood Pressure 142/81 H Blood Pressure [Right Arm] 160/83 H 152/89 H Blood Pressure Mean 101 Blood Pressure Mean [Right Arm] 108 110 Pulse Oximetry 94 95 95 Oxygen Delivery Method Room Air Room Air Sepsis Recent Fever Within 48 Hours No Sepsis New/Unexplained Change in Mental Status No Sepsis Action Taken by Nursing No Action Required Laboratory Data 06/18/25 13:30 06/18/25 13:30 Lab Results 06/18/25 06/18/25 Range/Units 13:30 14:28 WBC 6.32 (4.8-10.8) K/ul RBC 4.53 L (4.70-6.10) M/uL Hgb 13.5 L (14.0-18.0) g/dl Hct 41.0 L (42.0-52.0) % MCV 90.5 (80.0-100.0) fL MCH 29.8 (25.0-34.0) pg MCHC 32.9 (32.0-36.0) g/dL RDW Std Deviation 43.6 (36.4-46.3) fL RDW Coeff of Az 13.2 (11.5-14.5) % Plt Count 199 (130-400) K/uL MPV 10.7 (9.4-12.4) fL Immature Gran % (Auto) 0.3 % Neut % (Auto) 78.8 % Lymph % (Auto) 12.2 % [place] % (Auto) 6.5 % Eos % (Auto) 2.2 % Baso % (Auto) 0.0 % Neut # (Auto) 4.98 (1.40-6.50) K/uL Lymph # (Auto) 0.77 L (1.20-3.40) K/uL [place] # (Auto) 0.41 (0.11-0.59) K/uL Eos # (Auto) 0.14 (0.00-0.50) K/uL Baso # (Auto) 0.00 (0.00-0.20) K/uL Immature Gran # (Auto) 0.02 (0.01-0.20) K/uL Sodium 136 (136-145) mmol/L Potassium 3.9 (3.5-5.1) mmol/L Chloride 100 (98-107) mmol/L Carbon Dioxide 29 (21-32) mmol/L Anion Gap 7 (3-11) BUN 29 H (6-23) mg/dl Creatinine 0.76 (0.6-1.4) mg/dl Est Cr Clr Drug Dosing 88.1 ml/min eGFR 93.15 BUN/Creatinine Ratio 38.2 H (10-20) Glucose 103 H (70-99(Fasting)) mg/dl Calcium 9.1 (8.6-10.3) mg/dl Total Bilirubin 0.6 (0.2-1.0) mg/dl AST 21 (13-39) U/L ALT 13 (7-52) U/L Alkaline Phosphatase 103 (34-104) U/L Troponin I High Sens 4.5 (0-20) pg/ml Total Protein 6.8 (6.0-8.3) gm/dl Albumin 4.0 (3.4-5.0) gm/dl Globulin 2.8 (2.5-4.0) gm/dl Albumin/Globulin Ratio 1.4 (0.9-2) Nasal Screen MRSA (PCR) Negative (Negative) Administered Medications Ceftriaxone Sodium (Rocephin) 2,000 mg in 50 mls @ 100 mls/hr IV Q24H [facility] Stop: 06/20/25 13:44 Last Infusion: 06/18/25 14:38 Dose: Infused Documented By: Admin: 06/18/25 14:08 Dose: 100 mls/hr Documented By: SHIRLEY Discontinued Medications Cetirizine HCl (Cetirizine Hcl 10 Mg Tablet) 10 mg PO NOW ONE Stop: 06/18/25 13:41 Last Admin: 06/18/25 14:00 Dose: 10 mg Documented By: SHIRLEY Discharge Plan Visit Data Chief Complaint: Allergic Reaction Stated Complaint: REACTION TO MED, HIVES ED Provider: Shiv Bermudez Discharge Problem: Leg wound, right, Cellulitis, Allergic reaction Patient Disposition: Admitted As Inpatient Condition: Fair Discharge Instructions Interventions: ED Discharge Assessment Last Done: 06/18/25 19:40 Discharge Problem: Leg wound, right Qualifiers: Encounter type: subsequent encounter Qualified Code(s): S81.801D - Unspecified open wound, right lower leg, subsequent encounter Cellulitis Qualifiers: Site of cellulitis: extremity Site of cellulitis of extremity: lower extremity Laterality: left Qualified Code(s): L03.116 - Cellulitis of left lower limb
--- NOTE | 2025-06-18 15:30 | History & Physical Report ---
Date of Service June 18, 2025 Assessment & Plan (1) Leg wound, right: (2) Cellulitis of right anterior lower leg: (3) Chronic venous stasis: (4) Hypertension: Plan #Right lower extremity cellulitis failing outpatient treatment. - Two considerations on why he is failingfirst would be bacteria causing the infection/antibiotic coveragegiven that he had a incomplete response to cephalexin, and given that things are now worsening again, it certainly raises the question of resistant gram-positive's (most likely) versus gram-negative's (possible but less likely). Will check MRSA narisif positive, will cover for resistant gram-positive's and follow. If MRSA nares negative, will maintain ceftriaxone initiated in ER to cover for gram-negative's. Will also check a surface culture, but explained to patient that surface cultures are very an exact science that we will mostly just give a feel for what type of bacteria are "in the neighborhood" not necessarily what is actually causing the infection - second consideration is if there is anything anatomic keeping the infection from getting betteri.e. underlying abscess/osteomyelitis/etc.given that is an area with fairly shallow skin and the ulceration looks reasonably deep, while I doubt this is at play, it certainly could be. Will check MRI to get a good idea of the depth and extensiveness of anything that I am not able to see visually. - Wound care consult #allergic reaction/hives - appears to be related to the doxycycline. This has been discontinued. Hold off on systemic steroids given he has an active infection with open ulceration, utilize antihistamines and topical steroids. I expect this to get better in the coming days given that the doxycycline has been stopped #chest discomfort - agree with patient was almost certainly upper GI, especially given the way it felt and he was not that far removed from the dose of doxycycline at that time. Given that it lasted for so long, a negative troponin can be very reassuring in this contextwhile I doubt it is cardiac, we will check a troponin for completeness and for his peace of mind. Obviously workup further if the troponin is elevated. #Hypertension discussed general guidelines of management. Discussed inpatient hypertensive control is often erratic due to stress/etc. Hold home meds and monitor for now. Only treat if his numbers are wildly elevated, or he shows any hypertensive symptoms. Otherwise at home would have him follow his blood pressures off of medications and then review with PCP (he would very much like to be on a, off of his medications) #venous stasis -discussed general principles of management. Outpatient follow-up. Movement is much as possible #DVT prophylaxis - Lovenox History of Present Illness Chief Complaint: Right leg cellulitis, failing outpatient treatment. Primary Care Provider: Herlinda Rudolph MD Patient is a very pleasant 75-year-old male who presents for multiple problemsbut the most pressing is his right leg. About a month ago he was at physical therapy, he was riding on a bike, and then he switched his attention to checking the calendar on his phone for a follow-up appointment, unfortunately his leg slipped off the pedal and he hit his langley creating an ulcer. He notes that he has a degree of vascular insufficiency and therefore things always heal slowly, but since then the ulcerations have not healed. At first there was no cellulitis, but then little over a week ago he saw a physician at his PCPs office because it was starting to appear infected. She started cephalexinand during that week it definitely did not worsen, although it was a little hard to tell for sure if things were getting better or notshe favors that they might have been a little, but that the ulcer was not healing at all. Followed up with his PCP a week later, and she felt the samethat things were not clearly worse, but definitely not totally betterbut because it was not clearly worsening/not clearly failing, she opted to extend the course of cephalexin. He then ended up in the ER on 06/16 with angioedema, attributed to his losartan. That got better, and the ER physician, seeing his leg, felt that a switch of antibiotics for more deep gram-positive coverage was warranted, and started doxycycline. After his second dose of doxycycline, he had diffuse hives which persist today (his second dose of doxycycline would have been yesterday morning). The hives have been really itchy, although antihistamines have helped, and topical steroid has helped. Last night at dinner he had probably at least 30 minutes, maybe more, of substernal chest pressurehe felt it very much in line with indigestion and felt like he had to burp but nothing would come upbut he does express a little bit of concern because it was chest pressure and ensuring that it is not cardiac. Of note during the day yesterday he was doing a lot of vigorous yard work with no chest pains/pressure/undue shortness of breath. He also wonders about being able to come off of his blood pressure medicinessince stopping the losartan, they had noted at home his pressures were in the range of 120/80. He is doing physical therapy with intent of getting back to the gym. He has chronic venous stasison chart review whenever he talks about vascular insufficiency of his legs it appears to be a venous insufficiency phenomenon. I see nothing in chart review, documentation or imaging, to suggest arterial insufficiency, and he has no other notable arterial/atherosclerotic vascular disease. He does note chronic incontinence since his prostatectomy, continues to follow with his urologist. Allergies Allergy/AdvReac Type Severity Reaction Status Date / Time doxycycline Allergy Intermediate Hives Verified 06/18/25 13:07 Sulfa (Sulfonamide Allergy Intermediate HIVES, Verified 06/15/25 15:32 Antibiotics) JOINT STIFFNESS oxybutynin AdvReac Unknown dry mouth, Verified 06/15/25 15:32 water retention, itchy, aggitated, low energy Home Medications Medication Instructions Recorded Confirmed Type aspirin 81 mg tablet,delayed 81 mg PO QAM 10/08/18 06/18/25 History release cholecalciferol (vitamin D3) 50 2,000 units PO QPM 10/08/18 06/18/25 History mcg (2,000 unit) capsule multivitamin (Daily Multi-Vitamin 1 tab PO QAM 02/17/19 06/18/25 History tablet) zinc 50 mg tablet 30 mg PO QPM 09/03/23 06/18/25 History clobetasol 0.05 % topical ointment 1 applic topical BID PRN allergic 08/13/24 06/18/25 Rx contact dermatitis #30 grams losartan 100 1 tab PO DAILY #90 tabs 11/30/24 06/18/25 Rx mg-hydrochlorothiazide 25 mg tablet rosuvastatin 5 mg tablet 5 mg PO DAILY #90 tabs 11/30/24 06/18/25 Rx triamcinolone acetonide 0.1 % 1 applic topical BID PRN Rash #15 01/21/25 06/18/25 Rx topical cream grams amoxicillin 500 mg capsule 2,000 mg PO UD PRN dental 06/16/25 06/18/25 History appointment cephalexin 500 mg capsule 0 mg PO QID for 7 days 06/16/25 06/18/25 History solifenacin 10 mg tablet 0 mg PO DAILY 06/16/25 06/18/25 History diphenhydramine HCl 25 mg capsule 0 mg PO UD PRN Allergic Reaction 06/18/25 06/18/25 History (Benadryl) doxycycline hyclate 100 mg capsule 0 mg PO BID 06/18/25 06/18/25 History hydrocortisone 1 % lotion 0 applic topical UD PRN Other 06/18/25 06/18/25 History Past Med/Surg History Problem List Leg wound, right (Acute) LEXII inhibitor-aggravated angioedema (Acute) Cellulitis of right anterior lower leg Left knee DJD History of bilateral hip replacements Sensorineural hearing loss (SNHL) of right ear with restricted hearing of left ear Mixed conductive and sensorineural hearing loss of left ear with restricted hearing of right ear Impaired fasting glucose (Chronic) Hyperlipidemia (Chronic) Chronic venous stasis (Chronic) Incontinence (Chronic) Adenocarcinoma of prostate (Chronic) Hypertension (Chronic) Medical History Right clavicle fracture Diverticulosis Herniated intervertebral disc of lumbar spine Vitamin D deficiency Surgical History History of prostate surgery History of colonoscopy MULTIPLE History of total hip replacement Right - 04/20/2010, Left 07/27/2010 History of hernia repair 10/2010 Left inguinal hernia repair Family History Mother , Passed age 86 of [place] Myocardial infarction Father , Passed age 89 of CHF CHF (congestive heart failure) Arthritis Hypertension Brother No problems noted. Brother No problems noted. Brother No problems noted. Sister Thrombocythemia, essential "preleukemia" Bone marrow disorder Son No problems noted. Daughter No problems noted. 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 HEENT normocephalic atraumatic mucous membranes moist. Cardio is regular without rubs murmurs or gallops, lungs are clear without rales rhonchi or wheezes. Abdomen is soft. Extremitieshis right lower extremity has erythema from just proximal to his ankle to about custodial up his langley. About [address] up the area of the erythema is an ulcerationit essentially is about 2 nickel sized ulcerations that are confluent in the middle. There is black eschar at the bottom, and yellowish exudate and a bit of a foul smell. There is no other tracking erythema. Otherwise with his skin he has diffuse wheals/hives all over. They do appear pruritic. Neuro shows cranial nerves II through XII to be grossly intact gross motor and sensory are intact. Mental status shows good recent and remote recall normal mood and affect good judgment and insight. Labs and diagnostics noted. Results & Data Results & Data Vital Signs (Past 12 Hours) Vital Signs Temp Pulse Pulse Resp BP BP Pulse Ox 06/18/25 14:33 79 16 152/89 H 95 06/18/25 13:59 78 16 160/83 H 95 06/18/25 12:42 97.9 F 90 18 142/81 H 94 O2 Del Method 06/18/25 14:33 Room Air 06/18/25 13:59 Room Air 06/18/25 12:42 Code Status & VTE Plan VTE Prophylaxis Plan VTE Prophylaxis will be ordered: Yes PG Care Time/CCT Total # of Minutes Spent Total Time Spent with Patient: Total time spent is greater than 50% in coordination of care (as documented) at patient's floor/unit and/or counseling patient: Coding Level of Care Code 61740 INT INP/OBS CARE Diagnoses Leg wound, right S81.801A Cellulitis of right anterior lower leg L03.115 Chronic venous stasis I87.8 Hypertension I10
[2025-06-18] MEDS ORDERED: MAGNESIUM HYDROXIDE SUSP 30 ML UDC PO PRN (20:00)
[2025-06-18] MEDS ORDERED: ALUMINUM/MAGNESIUM SUSP 30 ML UDC PO PRN (20:00)
[2025-06-18] MEDS ORDERED: POLYETHYLENE (MIRALAX) 17 GM PACK PO PRN (20:00)
[2025-06-18] MEDS: ENOXAPARIN INJ 40 MG/0.4 ML SYR SQ SCH (20:33)
[2025-06-18] MEDS: CHOLECALCIFEROL 25 MCG (1000 UNITS) TAB PO SCH (20:34)
[2025-06-19] MEDS: ACETAMINOPHEN 325 MG TAB PO PRN (07:20)
--- NOTE | 2025-06-19 08:18 | Magnetic Resonance Report ---
HISTORY: 75-year-old male with right langley injury and nonhealing wound. History of vascular insufficiency. TECHNIQUE: MRI of the right tibia and fibula without contrast COMPARISON: None. FINDINGS: Evaluation is limited by motion artifact. Nonspecific bone marrow edema is present involving the proximal tibial diaphysis on Series 8 image 13 and series 5 image 20. The overlying cortex maintains normal signal intensity at this level. The overlying cortex mild nonspecific marrow edema involving the distal diaphysis of the tibia is present on series 8 image 13 and series 18 image 28. Abnormal hyperintensity of the overlying cortex and subtle erosion on series 18 image 28 suspicious for osteomyelitis. Overlying skin wound or ulceration with associated marrow edema. Extensive soft tissue edema is seen throughout the lower leg without well-developed fluid collection or abscess. Osteoarthritis of the knee and ankle. Subchondral marrow edema within the medial tibial plateau Is favored to be degenerative. IMPRESSION: * Evaluation is significantly limited by motion artifact. * Mild bone marrow edema involving the distal tibial diaphysis with overlying signal abnormality and subtle erosion of the cortex on series 18 image 28 suspicious for osteomyelitis with overlying soft tissue wound or ulceration. * Additional area of nonspecific marrow edema within the proximal diaphysis of the tibia on series is nonspecific and favored to be reactive with no overlying soft tissue wound or cortical changes. * Extensive subcutaneous soft tissue edema throughout the leg concerning for cellulitis. No well-developed fluid collection or abscess is identified. * Subchondral marrow edema involving the medial tibial plateau is favored to be degenerative due to advanced knee osteoarthritis. Electronically signed by James Cardoso 06-19-2025 08:18 AM
[2025-06-19] MEDS: MULTIVITAMIN TAB PO SCH (09:30)
[2025-06-19] MEDS: ROSUVASTATIN CALCIUM 5 MG TAB PO SCH (09:30)
[2025-06-19] MEDS: ASPIRIN 81 MG ECTAB PO SCH (09:30)
[2025-06-19] MEDS: CETIRIZINE HCL 10 MG TABLET PO SCH (09:31)
[2025-06-19] MEDS: OXYBUTYNIN CHLORIDE XL 5 MG TABCR PO SCH (09:53)
--- NOTE | 2025-06-19 10:31 | Hospitalist Progress Note ---
Date of Service June 19, 2025 Assessment & Plan (1) Allergic reaction: (2) Cellulitis: (3) Leg wound, right: (4) LEXII inhibitor-aggravated angioedema: (5) Chronic venous stasis: (6) Hypertension: Plan 75 yo with pMH of HTN, chronic venous stasis, Left knee DJD, BL hip replacement, SNHL, HLD, Incontinence, Ca Prostrate is currently admitted for cellulitis in Rt leg not responding for outpatient Cephalexin treatment. #Right lower extremity cellulitis failing outpatient treatment vs early osteomyelitis: - Failed outpatient trt with cephalexin for 10 days. - Wound swab: +ve for Pseudomonas, E coli- No sensitivity to follow. - Was started on Rocephin on admission-- switched to Cefepime given pseudomonas. - MRSA nares : neg, do not think it is MRSA. - Give anatomic variation of patient lesion and MRI reporting doubtful osteomyelitis(which seems more proximal to clinical location of wound), it looks reasonable to wait for Wound care input tomorrow with ongoing cefepime covering for GP, GN as well as pseudomonas. Defer to wound management if they would want to include Orthopedic input. #allergic reaction/hives -appears 2/2 Doxycycline. - Improving after stoping Doxy - Benadryl PRN order in #chest discomfort - Improved. #Hypertension - h.o intolerance of ARB and recent angioedema while on lisinopril. - BP stable post admission--monitor regular - Would re-visit BPs as home and have follow up with PCP to start med if only needed. #venous stasis - Outpatient follow-up. Movement is much as possible #DVT prophylaxis - Lovenox Dispo: Home after DC. Pending wound eval tomorrow. Admission and Anticipated Discharge Date Admission Date: June 18, 2025 Supervising Physician Co-Signing Physician Notes I personally examined the patient and verified all reaves points of history and exam, discussed case, and agree with decision making with Dr Jain Leg redness and swelling a bit better. Otherwise no new complaints. Vitals noted, in general he is awake and alert pleasant no distress. HEENT normocephalic atraumatic mucous membranes moist. Breathing unlabored no accessory muscle use good effort. Skin with improved erythema on his right leg, ulcerations appear about the samebasically 2 small circular ulcerations that become confluent, with black eschar at the bottom and thin yellow-green exudate and a foul smell. Leg ulcergiven how thin the skin is in that area and the gross appearance of depth of ulceration, concern about osteomyelitisthis concern is furthered by the MRI findings (although I am not really able to correlate where the radiol ogist is seeing bone signal consistent with possible osteo compared where they are where the ulcers arewould ask that tomorrow physician assuming his care try to have radiology look at films so that we could get a comparison of where the bone "lights up" compared to where the ulceration is) - discussed with the patient, at the current time have to manage as though there is osteomyelitis, with a presumption of probably a prolonged course of antibiotics (at the time, I was assuming MSSA as well as "regular gram-negative" organisms in discussing ceftriaxonewith the later finding that his langley is growing Pseudomonas, a p.o. basil quinolone might actually be the optimal choice, may need to discuss with infectious disease tomorrow) - wound care consult pendingdepending on wound care eval, they may also visibly see +/- evidence of osteomyelitis; the other thing I will be awaiting from wound is if local wound care will be adequate, or if he will require surgical debridement (if so, he would prefer Dr. Mckinnon see him, given the Dr. Mckinnon did his hip replacements) ---- escalated to cefepime for now given pseudomonal culture. Continue local wound care for now. Anticipate him going homethe question will be if there is no consistent evidence on osteomyelitis when we are able to correlate his physical exam with his MRI findings, and wound care eval is low suspicion for osteomyelitisthen possibly home tomorrow on p.o. fluoroquinolone. If there is consistency with osteomyelitis but local wound care (not a surgical debridement) is preferredthen probably home tomorrow on a p.o. fluoroquinolone (but would probably want to discuss with infectious disease regarding optimal treatment for the osteomyelitis). If surgical debridement needed, obviously will need to stay for that. Would recommend following up with the wound clinic regardless. Subjective This morning Sagar is doing great, feeling still same, no increase in hives or c ellulitis lesion, no pain while he is lying down. He slept ok last night. Peeing ok, pooping ok. Last BM on Friday, but does not feel distended. He takes calcium supplement regular, this is what he thinks is reason for his constipation. No fever. CP he had mentioned yesterday have resolved. He thinks that was probably because he was gassy, but ended up throwing some saliva like secretions and now no more pain in his chest. Hives are getting better, he even had some in scalp yesterday but its better now. He was curious about the plan today. Mentions he used to take ibuprofen and Tylenol for pain, last dose was on Friday, not sure if it gave him hives or its losartan giving angioedema. But has not had reaction to Ibuprofen in past. Review of Systems Review of Systems: Per hPI Physical Exam Physical Exam: Constitutional: Well appearing, No acute distress, PILCCOD: Negative HEENT: Atraumatic, Normocephalic, No conjunctival injection CVS: Looks well perfused. Respiratory: No increased work of breathing GI: Soft, Nondistended, Nontender, Normal Bowel sounds + MSK: No gross deformities noted Skin:Hives in his arms, belly and perineal region, getting better per patient and previous provider. Right leg was bandaged, did not take bandage out, please refer to H and P and attestation for wound description. No erythema extending outside bandage. Neuro: Alert, Oriented to TPP, No Focal deficit Psych: Mood and Affect congruent, Cooperative on exam Results & Data Results & Data Vital Signs (Past 12 Hours) Vital Signs Temp Pulse Resp BP Pulse Ox O2 Del Method 06/19/25 07:15 36.4 C L 80 16 148/67 H 96 Room Air Resident Activity Tracking Resident Involvement: Resident Care Provided Care Provided: Adult Hospital Medicine (2) Cellulitis Laterality: left Site of cellulitis: extremity Site of cellulitis of extre mity: lower extremity Qualified Code(s): L03.116 - Cellulitis of left lower limb (3) Leg wound, right Encounter type: subsequent encounter Qualified Code(s): S81.801D - Unspecified open wound, right lower leg, subsequent encounter (4) LEXII inhibitor-aggravated angioedema Encounter type: initial encounter Qualified Code(s): T78.3XXA - Angioneurotic edema, initial encounter; T46.4X5A - Adverse effect of vltbsftoijv-mtmdnmvzls-lpinhg inhibitors, initial encounter
[2025-06-19] MEDS: TRIAMCINOLONE ACET 0.1% CR 15 GM TUBE TOP PRN (12:40)
[2025-06-19] MEDS: CEFEPIME 2000MG 2,000 MG/20 ML SYR IV SCH (14:17)
--- NOTE | 2025-06-19 18:31 | Billing Data ---
Date of Service June 19, 2025 Coding Level of Care Code 13250 SUB INP/OBS CARE MIN
[2025-06-19] MEDS: diphenhydrAMINE Capsule 25 MG CAP PO PRN (21:10)
[2025-06-20] MEDS: KETOROLAC TROMETHAMINE 15 MG/ML VIAL IV ONE (03:37)
[2025-06-20] MEDS: MoRPHine SULFATE 4 MG/ML 1 ML CARP\\VIAL IV STA (04:38)
[2025-06-20 07:14] LABS: Hematocrit (blood only) 37.2 % (42.0-52.0); Hemoglobin 12.1 g/dl (14.0-18.0); Immature Granulocytes # (auto) 0.02 K/uL (0.01-0.20); Immature Granulocytes % (auto) 0.4 %; Mean Corpuscular Hemoglobin 29.8 pg (25.0-34.0); Mean Corpuscular Volume 91.6 fL (80.0-100.0); Platelet Count 149 K/uL (130-400); RDW Standard Deviation 42.5 fL (36.4-46.3); Red Blood Count 4.06 M/uL (4.70-6.10); White Blood Count 5.24 K/ul (4.8-10.8)
[2025-06-20 07:35] LABS: Anion Gap 5.0 (3-11); Blood Urea Nitrogen 18.0 mg/dl (6-23); Calcium 8.6 mg/dl (8.6-10.3); Carbon Dioxide 28.0 mmol/L (21-32); Chloride 101.0 mmol/L (98-107); Creatinine Clr Calc Pharmacy 98.1 ml/min; Glucose 100.0 mg/dl (70-99(Fasting)); Potassium 4.0 mmol/L (3.5-5.1); Sodium 134.0 mmol/L (136-145)
[2025-06-20] MEDS: FAMOTIDINE 20 MG TAB PO SCH (10:54)
--- NOTE | 2025-06-20 16:11 | Hospitalist Progress Note ---
Date of Service June 20, 2025 Assessment & Plan (1) Allergic reaction: (2) Cellulitis: (3) Leg wound, right: (4) LEXII inhibitor-aggravated angioedema: (5) Chronic venous stasis: (6) Hypertension: Plan #Right lower extremity cellulitis failing outpatient treatment vs early osteomyelitis: -Failed outpatient treatment with cephalexin for 10 days -Wound swab: +Pseudomonas, E coli, Morganella morganii, Aeromonas hydrophila (awaiting for remaining sensitivities) -on Cefepime IV -MRSA nares: neg (no concerns for gram + coverage) -MRI of right tib/fib without contrast reviewed with radiology with addendum supporting osteitis with no evidence of osteomyelitis within the right tib/fib. -wound care consult pending to determine for possible debridement vs d/c home with outpatient wound care and oral antibiotics #allergic reaction/hives -presented to [facility] ED on 06/16/25 with angioedema (Losartan d/c'ed) -self reports he did not have hives during his course of being on Keflex, hives started after two days of Doxy -possible reaction to Doxycycline as hives appeared 2 days into Doxy course -no systemic signs of anaphylaxis, mouth sores, ulcerations, fever, SOB, wheezing, vision concerns -hives progressing under BL axilla, behind ears and nape of neck -cont daily Claritin, Benadryl at hs -added Pepcid, one time dose of Methylprednisolone IV -consider delayed reaction to Keflex, currently on Cefepime>if symptoms persists may need to bridge to early oral quinolone for treatment of p. aeruginosa #chest discomfort -no complaints #Hypertension -intolerance of ARB and recent angioedema while on losartan -SBP with slight elevation, will monitor while in hospital -if persistent elevation in hospital, consider start of other agent if needed #venous stasis -Outpatient follow-up #DVT prophylaxis: Lovenox Dispo: Home after D/C Admission and Anticipated Discharge Date Admission Date: June 18, 2025 Subjective Patient seen lying in bed this am. States he had worsening pain in his right lower leg last evening which required Morphine IV to be administered. This did relieve pain. States the pain has resurfaced this am. He reports continued urticaria to hives present on anterior/posterior trunk with reported migration on nape of neck. Has been taking Claritin and only wants to take Benadryl at bedtime as this causes sleepiness during the day and he has important paperwork to tend to. Eating/drinking well. Denies fever, chills, chest pain, SOB. Review of Systems Review of Systems: All systems reviewed & are unremarkable except as noted in Subjective Physical Exam Physical Exam: GENERAL APPEARANCE: A&O. Sitting comfortably on stretcher. NAD. SKIN: Scattered small to larger sized wheals/hives to posterior/anterior trunk, nape of neck, BL axilla and behind ears. HEENT: Head AT/NC. Buccal mucosa is moist and pink. No ulcerations, peeling of lips or mucous membranes. NECK: No jugular venous distention. No thyroid enlargement. There is no lymphadenopathy. HEART: RRR without m/g/r. LUNGS: Normal inspiratory effort. CTA without w/r/r. ABDOMEN: No guarding or rigidity. Normoactive BS in all four quadrants. Abdomen soft and NT. MSK: No bony gross/deformities throughout. ROM intact. EXTREMITIES: No edema, No peripheral cyanosis. Two 1 in x 1 in sized ulcerations that are bordering one another with surrounding eschar to distal wound edge and yellow exudate. +DP/PT pulses. Neuro: CN 2-12 grossly intact. No focal neuro deficits PSYCHIATRIC: Normal affect. Eye contact is good. Speech is normal rate and content. Responses are appropriate. Results & Data Results & Data Vital Signs (Past 12 Hours) Vital Signs Temp Pulse Resp BP Pulse Ox O2 Del Method 06/20/25 15:25 36.9 C 72 18 150/77 H 97 Room Air 06/20/25 07:45 36.6 C 70 18 150/78 H 94 Room Air Laboratory Results labs reviewed PG Care Time/CCT Total # of Minutes Spent Total Time Spent with Patient: Total time spent is greater than 50% in coordination of care (as documented) at patient's floor/unit and/or counseling patient: Coding Level of Care Code 95305 SUB INP/OBS CARE 3/50MIN Diagnoses Allergic reaction T78.40XA Cellulitis L03.116 Laterality: left Site of cellulitis: extremity Site of cellulitis of extremity: lower extremity Leg wound, right S81.801D Encounter type: subsequent encounter LEXII inhibitor-aggravated angioedema T78.3XXA; T46.4X5A Encounter type: initial encounter Chronic venous stasis I87.8 Hypertension I10 (2) Cellulitis Laterality: left Site of cellulitis: extremity Site of cellulitis of extremity: lower extremity Qualified Code(s): L03.116 - Cellulitis of left lower limb (3) Leg wound, right Encounter type: subsequent encounter Qualified Code(s): S81.801D - Unspecified open wound, right lower leg, subsequent encounter (4) LEXII inhibitor-aggravated angioedema Encounter type: initial encounter Qualified Code(s): T78.3XXA - Angioneurotic edema, initial encounter; T46.4X5A - Adverse effect of irdaegbaqpm-irfedwhqev-sgtigh inhibitors, initial encounter
[2025-06-21 07:15] LABS: Hematocrit (blood only) 36.5 % (42.0-52.0); Hemoglobin 12.3 g/dl (14.0-18.0); Immature Granulocytes # (auto) 0.03 K/uL (0.01-0.20); Immature Granulocytes % (auto) 0.5 %; Mean Corpuscular Hemoglobin 29.9 pg (25.0-34.0); Mean Corpuscular Volume 88.6 fL (80.0-100.0); Platelet Count 168 K/uL (130-400); RDW Standard Deviation 40.9 fL (36.4-46.3); Red Blood Count 4.12 M/uL (4.70-6.10); White Blood Count 5.80 K/ul (4.8-10.8)
[2025-06-21 07:41] LABS: Anion Gap 5.0 (3-11); Blood Urea Nitrogen 18.0 mg/dl (6-23); Calcium 8.8 mg/dl (8.6-10.3); Carbon Dioxide 27.0 mmol/L (21-32); Chloride 101.0 mmol/L (98-107); Creatinine Clr Calc Pharmacy 115.2 ml/min; Glucose 150.0 mg/dl (70-99(Fasting)); Potassium 3.9 mmol/L (3.5-5.1); Sodium 133.0 mmol/L (136-145)
--- NOTE | 2025-06-21 11:09 | Infectious Disease Consult ---
Date of Consultation June 21, 2025 Assessment & Plan (1) Leg wound, right: (2) Cellulitis of right anterior lower leg: Plan This is a 75-year-old male with a past medical history of hypertension, bilateral hip replacement, hyperlipidemia, chronic venous stasis, prostate cancer status post prostatectomy radiation therapy and ADT who presents for evaluation of a nonhealing right lower extremity wound and allergic reaction to medication. He reports that he had a fall in October 2024 secondary to weakness after undergoing radiation and chemotherapy. Since that time he has been going to physical therapy. In May 2025, he slipped off of one of the stationary bikes during physical therapy and scraped the right lower extremity. He subsequently developed a wound. His PCP prescribed a 7-day course of cephalexin with minimal improvement. He then was prescribed another 7 days of cephalexin. On the second day of therapy he developed facial and lip swelling. There was a concern for allergic reaction to cephalexin. Antibiotics were switched to doxycycline. It was thought that the lip angioedema was secondary to losartan and not antibiotics. On doxycycline leg wound remained erythematous and developed drainage. he believes he developed hives on doxycycline He presented to the ED for further evaluation. notes some of foul-smelling drainage. Doxycycline was discontinued in the ED.. He denied fevers, chills, sweats, nausea, vomiting On admission, he was afebrile and hemodynamically stable. Labs WBC 6.32, BUN 29, creatinine 0.76, CRP 7.6, MRSA nasal screen negative. Wound cultures obtained are growing Pseudomonas aeruginosa, Aeromonas hydrophilia, E. coli, Morganella morganii. Lower extremity MRI shows extensive subcutaneous soft tissue edema concerning for cellulitis. No fluid collection. There is minimal periosteal and and osteo edema of the mid to distal shaft of the right tibia at the site of overlying wound. T1 marrow signal is preserved. MRI findings suggest osteitis. There is no evidence for acute osteomyelitis within the right tibia or fibula. Lower extremity arterial Doppler unremarkable. Infectious disease consulted for wound infection with Pseudomonas aeruginosa. He is currently on Cefepime. Microbiology 06/18 Wound culture #1 many GPC and few GNR on Gram stain. Pseudomonas aeruginosa (pansensitive), Morganella morganii (resistant to amp/Hellen), E. coli pansensitive. Wound culture #2 moderate GPC, few GNR, Pseudomonas aeruginosa (pansensitive), E. coli (pansensitive), Aeromonas hydrophilia/caviae (intermediate amoxicillin/clavulanate, tobramycin. Resistant ampicillin/sulbactam, cefazolin. Antibiotics Ceftriaxone 06/18 Cefepime 06/19current # Right lower extremity nonhealing wound with eschar and surrounding cellulitis, without osteomyelitis, Cx polymicrobial with GNR # Prostate cancer # sp BL hip replacement # Doxycycline allergy- hives # Sulfa allergy- hives Discussion: Right lower extremity wound developed post trauma in 05/2025. He had failed to improve on cephalexin. Wound cultures growing multiple gram-negative rods. He is pending evaluation by orthopedics for possible debridement. MRI of lower extremity shows cellulitis without osteomyelitis Recommendations Continue cefepime 2 g IV every 8 hours Follow-up orthopedics. If undergoes debridement, follow-up cultures Recommendations discussed with primary team. Thank you for this consult. ID will continue to follow. Rusty Baltazar MD, MPH Infectious Disease [facility] Call [phone] with questions Consultation Information Consultation was provided via telemedicine using two-way real-time interactive telecommunication between the patient and the telemedicine provider. For the duration of the visit, the provider was performing the assessment from a different facility than the patient. This includesuse of bluetooth stethoscope forauscultationperformed by the telepresenter that the telemedicine provider can hear if described in the physical exam. License Distributor contact information: Please call [facility] Call Center [phone]. (Phone Number For Physician Use Only) After establishing a telemedicine visit, patient was: Patient was verified with two unique identifiers and Gave permission to continue telehealth session Time Spent with Patient: Initial => 75 min History of Present Illness Reason for Consultation: Pseudomonas wound infection/ulcer Requesting Physician: ALICIA Kaur Attending Physician: Riley Abraham MD History of Present Illness This is a 75-year-old male with a past medical history of hypertension, bilateral hip replacement, hyperlipidemia, chronic venous stasis, prostate cancer status post prostatectomy radiation therapy and ADT who presents for evaluation of a nonhealing right lower extremity wound and allergic reaction to medication. He reports that he had a fall in October 2024 secondary to weakness after undergoing radiation and chemotherapy. Since that time he has been going to physical therapy. In May 2025, he slipped off of one of the stationary bikes during physical therapy and scraped the right lower extremity. He subsequently developed a wound. His PCP prescribed a 7-day course of cephalexin with minimal improvement. He then was prescribed another 7 days of cephalexin. On the second day of therapy he developed facial and lip swelling. There was a concern for allergic reaction to cephalexin. Antibiotics were switched to doxycycline. It was thought that the lip angioedema was secondary to losartan and not antibiotics. On doxycycline leg wound remained erythematous and developed drainage. he believes he developed hives on doxycycline He p resented to the ED for further evaluation. notes some of foul-smelling drainage. Doxycycline was discontinued in the ED.. He denied fevers, chills, sweats, nausea, vomiting On admission, he was afebrile and hemodynamically stable. Labs WBC 6.32, BUN 29, creatinine 0.76, CRP 7.6, MRSA nasal screen negative. Wound cultures obtained are growing Pseudomonas aeruginosa, Aeromonas hydrophilia, E. coli, Morganella morganii. Lower extremity MRI shows extensive subcutaneous soft tissue edema concerning for cellulitis. No fluid collection. There is minimal periosteal and and osteo edema of the mid to distal shaft of the right tibia at the site of overlying wound. T1 marrow signal is preserved. MRI findings suggest osteitis. There is no evidence for acute osteomyelitis within the right tibia or fibula. Lower extremity arterial Doppler unremarkable. Infectious disease consulted for wound infection with Pseudomonas aeruginosa. He is currently on Cefepime. Allergies Allergy/AdvReac Type Severity Reaction Status Date / Time doxycycline Allergy Intermediate Hives Verified 06/18/25 13:07 Sulfa (Sulfonamide Allergy Intermediate HIVES, Verified 06/15/25 15:32 Antibiotics) JOINT STIFFNESS oxybutynin AdvReac Unknown dry mouth, Verified 06/15/25 15:32 water retention, itchy, aggitated, low energy Home Medications Medication Instructions Recorded Confirmed Type aspirin 81 mg tablet,delayed 81 mg PO QAM 10/08/18 06/18/25 History release cholecalciferol (vitamin D3) 50 2,000 units PO QPM 10/08/18 06/18/25 History mcg (2,000 unit) capsule multivitamin (Daily Multi-Vitamin 1 tab PO QAM 02/17/19 06/18/25 History tablet) zinc 50 mg tablet 30 mg PO QPM 09/03/23 06/18/25 History clobetasol 0.05 % topical ointment 1 applic topical BID PRN allergic 08/13/24 06/18/25 Rx contact dermatitis #30 grams losartan 100 1 tab PO DAILY #90 tabs 11/30/24 06/18/25 Rx mg-hydrochlorothiazide 25 mg tablet rosuvastatin 5 mg tablet 5 mg PO DAILY #90 tabs 11/30/24 06/18/25 Rx triamcinolone acetonide 0.1 % 1 applic topical BID PRN Rash #15 01/21/25 06/18/25 Rx topical cream grams amoxicillin 500 mg capsule 2,000 mg PO UD PRN dental 06/16/25 06/18/25 History appointment cephalexin 500 mg capsule 0 mg PO QID for 7 days 06/16/25 06/18/25 History solifenacin 10 mg tablet 0 mg PO DAILY 06/16/25 06/18/25 History diphenhydramine HCl 25 mg capsule 0 mg PO UD PRN Allergic Reaction 06/18/25 06/18/25 History (Benadryl) doxycycline hyclate 100 mg capsule 0 mg PO BID 06/18/25 06/18/25 History hydrocortisone 1 % lotion 0 applic topical UD PRN Other 06/18/25 06/18/25 History Patient History Medical History Right clavicle fracture Diverticulosis Herniated intervertebral disc of lumbar spine Vitamin D deficiency Surgical History History of prostate surgery History of colonoscopy MULTIPLE History of total hip replacement Right - 04/20/2010, Left 07/27/2010 History of hernia repair 10/2010 Left inguinal hernia repair Family History Mother , Passed age 86 of [place] Myocardial infarction Father , Passed age 89 of CHF CHF (congestive heart failure) Arthritis Hypertension Brother No problems noted. Brother No problems noted. Brother No problems noted. Sister Thrombocythemia, essential "preleukemia" Bone marrow disorder Son No problems noted. Daughter No problems noted. 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 Pertinent positives as per HPI. Physical Exam Physical Exam: NAD Anicteric sclera, EOMI,AT/NC Supple Neck Soft abdomen, NT Non labored breathing, on RA R ant calf wound with thick eschar (~ 6 cm * 2 cm), lower area of wound with small amount of drainage- foul smelling. Mild surrounding erythema AAO times 3 Cooperative, normal mood Results & Data Vital Signs (Past 12 Hours) Vital Signs Temp Pulse Resp BP BP Pulse Ox O2 Del Method 06/21/25 10:01 167/81 H 06/21/25 09:31 83 166/85 H 96 Room Air 06/21/25 07:27 36.6 C 82 18 172/92 H 96 Room Air 06/21/25 07:00 36.7 C 80 16 197/112 H 93 Room Air 06/20/25 23:34 160/72 H Laboratory Results Laboratory Results - last 48 hr 06/20/25 06/21/25 06:59 06:25 WBC 5.24 5.80 RBC 4.06 L 4.12 L Hgb 12.1 L 12.3 L Hct 37.2 L 36.5 L MCV 91.6 88.6 MCH 29.8 29.9 MCHC 32.5 33.7 RDW Std Deviation 42.5 40.9 RDW Coeff of Az 12.9 12.5 Plt Count 149 168 MPV 10.6 11.1 Immature Gran % (Auto) 0.4 0.5 Neut % (Auto) 66.4 90.0 Lymph % (Auto) 21.2 6.2 Bowman % (Auto) 7.6 3.3 Eos % (Auto) 4.2 0.0 Baso % (Auto) 0.2 0.0 Neut # (Auto) 3.48 5.22 Lymph # (Auto) 1.11 L 0.36 L Bowman # (Auto) 0.40 0.19 Eos # (Auto) 0.22 0.00 Baso # (Auto) 0.01 0.00 Immature Gran # (Auto) 0.02 0.03 Sodium 134 L 133 L Potassium 4.0 3.9 Chloride 101 101 Carbon Dioxide 28 27 Anion Gap 5 5 BUN 18 18 Creatinine 0.74 0.63 Est Cr Clr Drug Dosing 98.1 115.2 eGFR 93.90 98.58 BUN/Creatinine Ratio 24.3 H 28.6 H Glucose 100 H 150 H Calcium 8.6 8.8 Microbiology 06/18/25 20:30 Leg Gram Stain - Final 06/18/25 20:30 Leg Wound Culture - Final Pseudomonas aeruginosa Aeromonas hydrophila/caviae Escherichia coli 06/18/25 13:36 Leg,Right Gram Stain - Final 06/18/25 13:36 Leg,Right Wound Culture - Final Pseudomonas aeruginosa Morganella morganii Escherichia coli Diagnostic Findings Lower Extremity MRI 06/18/25 15:17 HISTORY: 75-year-old male with right langley injury and nonhealing wound. History of vascular insufficiency. TECHNIQUE: MRI of the right tibia and fibula without contrast COMPARISON: None. FINDINGS: Evaluation is limited by motion artifact. Nonspecific bone marrow edema is present involving the proximal tibial diaphysis on Series 8 image 13 and series 5 image 20. The overlying cortex maintains normal signal intensity at this level. The overlying cortex mild nonspecific marrow edema involving the distal diaphysis of the tibia is present on series 8 image 13 and series 18 image 28. Abnormal hyperintensity of the overlying cortex and subtle erosion on series 18 image 28 suspicious for osteomyelitis. Overlying skin wound or ulceration with associated marrow edema. Extensive soft tissue edema is seen throughout the lower leg without well-developed fluid collection or abscess. Osteoarthritis of the knee and ankle. Subchondral marrow edema within the medial tibial plateau Is favored to be degenerative. IMPRESSION: * Evaluation is significantly limited by motion artifact. * Mild bone marrow edema involving the distal tibial diaphysis with overlying signal abnormality and subtle erosion of the cortex on series 18 image 28 suspicious for osteomyelitis with overlying soft tissue wound or ulceration. * Additional area of nonspecific marrow edema within the proximal diaphysis of the tibia on series is nonspecific and favored to be reactive with no overlying soft tissue wound or cortical changes. * Extensive subcutaneous soft tissue edema throughout the leg concerning for cellulitis. No well-developed fluid collection or abscess is identified. * Subchondral marrow edema involving the medial tibial plateau is favored to be degenerative due to advanced knee osteoarthritis. Electronically signed by James Cardoos 06-19-2025 08:18 AM ADDENDUM Addendum: Upon further review, there is minimal periosteal and endosteal edema of the mid to distal shaft of the right tibia at site of overlying wound. However, T1 marrow signal is preserved. Therefore, the MRI findings suggest osteitis. There is no evidence for acute osteomyelitis within the right tibia or fibula. Cellulitis is noted. There is no fluid collection to suggest abscess on unenhanced exam. Electronically signed by: Tawanda Rudolph M.D. 06/20/2025 12:44 PM Duplex Scan Lower Extremity Artery 06/21/25 10:35 RIGHT LOWER EXTREMITY DOPPLER ULTRASOUND CLINICAL HISTORY: decreased ABIs, ulceration to RLE COMPARISON STUDY: No previous studies for comparison. TECHNIQUE: Grayscale, color and duplex Doppler sonography of the arterial system of the right lower extremity was performed. FINDINGS: Normal triphasic waveforms within the right common femoral, superficial femoral, popliteal, anterior tibial, dorsalis pedis, posterior tibial and peroneal arteries were noted. No elevated velocities were identified. IMPRESSION: Unremarkable right lower extremity arterial Doppler ultrasound. Patent vessels without evidence for a stenosis. ACT 112: Negative or not required by law. Electronically signed by: Tawanda Rudolph M.D. 06/21/2025 1:29 PM Medications Administered Home Medications Medication Instructions Recorded Confirmed Last Taken aspirin 81 mg tablet,delayed 81 mg PO QAM 10/08/18 06/18/25 08/14/20 release cholecalciferol (vitamin D3) 50 2,000 units PO QPM 10/08/18 06/18/25 08/27/20 19:00 mcg (2,000 unit) capsule multivitamin (Daily Multi-Vitamin 1 tab PO QAM 02/17/19 06/18/25 08/27/20 19:00 tablet) zinc 50 mg tablet 30 mg PO QPM 09/03/23 06/18/25 Unknown clobetasol 0.05 % topical ointment 1 applic topical BID PRN allergic 08/13/24 06/18/25 Unknown contact dermatitis #30 grams losartan 100 1 tab PO DAILY #90 tabs 11/30/24 06/18/25 Unknown mg-hydrochlorothiazide 25 mg tablet rosuvastatin 5 mg tablet 5 mg PO DAILY #90 tabs 11/30/24 06/18/25 Unknown triamcinolone acetonide 0.1 % 1 applic topical BID PRN Rash #15 01/21/25 06/18/25 Unknown topical cream grams amoxicillin 500 mg capsule 2,000 mg PO UD PRN dental 06/16/25 06/18/25 Unknown appointment cephalexin 500 mg capsule 0 mg PO QID for 7 days 06/16/25 06/18/25 Unknown solifenacin 10 mg tablet 0 mg PO DAILY 06/16/25 06/18/25 Unknown diphenhydramine HCl 25 mg capsule 0 mg PO UD PRN Allergic Reaction 06/18/25 Unknown (Benadryl) doxycycline hyclate 100 mg capsule 0 mg PO BID 06/18/25 06/18/25 Unknown hydrocortisone 1 % lotion 0 applic topical UD PRN Other 06/18/25 06/18/25 Unknown Active Medications Generic Name Dose Route Start Last Admin Trade Name Freq PRN Reason Stop Dose Admin Acetaminophen 650 mg 06/18/25 20:00 06/21/25 05:49 Acetaminophen 325 Mg Tab PO 07/18/25 19:59 650 mg Q4H PRN Administration pain 1-3/fever Amlodipine Besylate 5 mg 06/21/25 11:15 06/21/25 12:21 Amlodipine Besylate 5 Mg Tab PO 07/21/25 11:14 5 mg QAM LUCIANA Administration Aspirin 81 mg 06/19/25 09:00 06/21/25 08:21 Aspirin 81 Mg Ectab PO 07/19/25 08:59 81 mg QAM LUCIANA Administration Cetirizine HCl 10 mg 06/19/25 09:00 06/21/25 08:21 Cetirizine Hcl 10 Mg Tablet PO 07/19/25 08:59 10 mg QAM LUCIANA Administration Diphenhydramine HCl 25 mg 06/18/25 20:00 06/19/25 21:10 Diphenhydramine Capsule 25 Mg Cap PO 07/18/25 19:59 25 mg HS PRN Administration rash/itch Enoxaparin Sodium 40 mg 06/18/25 20:00 06/20/25 20:40 Enoxaparin Inj 40 Mg/0.4 Ml Syr SQ 07/18/25 19:59 40 mg Q24H LUCIANA Administration Famotidine 20 mg 06/20/25 10:45 06/21/25 08:34 Famotidine 20 Mg Tab PO 07/20/25 10:44 20 mg BID LUCIANA Administration Cefepime HCl 2,000 mg in 20 mls @ 5 mls/min 06/19/25 13:45 06/21/25 13:22 Maxipime 2000mg IV 07/31/25 13:44 5 mls/min Q8H LUCIANA Administration Protocol Multivitamins 1 tab 06/19/25 09:00 06/21/25 08:21 Multivitamin Tab PO 07/19/25 08:59 1 tab QAM LUCIANA Administration Oxybutynin Chloride 10 mg 06/19/25 09:00 06/21/25 08:21 Oxybutynin Chloride Xl 5 Mg Tabcr PO 07/19/25 08:59 Not Given DAILY LUCIANA Rosuvastatin Calcium 5 mg 06/19/25 09:00 06/21/25 08:21 Rosuvastatin Calcium 5 Mg Tab PO 07/19/25 08:59 5 mg DAILY LUCIANA Administration Triamcinolone Acetonide 1 appln 06/18/25 20:00 06/20/25 14:34 Triamcinolone Acet 0.1% Cr 15 Gm Tube TOP 07/18/25 19:59 1 appln TID PRN Administration Rash Vitamin D 50 mcg 06/18/25 21:00 06/20/25 20:40 Cholecalciferol 25 Mcg (1000 Units) Tab PO 07/18/25 20:59 50 mcg QPM LUCIANA Administration (1) Leg wound, right Encounter type: subsequent encounter Qualified Code(s): S81.801D - Unspecified open wound, right lower leg, subsequent encounter
--- NOTE | 2025-06-21 11:18 | Hospitalist Progress Note ---
Date of Service June 21, 2025 Assessment & Plan (1) Allergic reaction: (2) Cellulitis: (3) Leg wound, right: (4) LEXII inhibitor-aggravated angioedema: (5) Chronic venous stasis: (6) Hypertension: Plan #Right lower extremity cellulitis failing outpatient treatment vs early osteomyelitis: -Failed outpatient treatment with cephalexin for 10 days -Wound swab: +Pseudomonas, E coli, Morganella morganii, Aeromonas hydrophila>Cefepime sensitive -on Cefepime IV -MRSA nares: neg (no concerns for gram + coverage) -MRI of right tib/fib without contrast reviewed with radiology with addendum supporting osteitis with no evidence of osteomyelitis within the right tib/fib. -wound care consult, recommending Santyl for debridement, in lieu of time sensitivity with Santyl will consult surgery for input -ABIs with wound care and concerns for PAD to RLE, arterial duplex of RLE -ID consult for input regarding d/c antibiotic therapy #allergic reaction/hives -presented to [facility] ED on 06/16/25 with angioedema (Losartan d/c'ed) -self reports he did not have hives during his course of being on Keflex, hives started after two days of Doxy -possible reaction to Doxycycline as hives appeared 2 days into Doxy course -no systemic signs of anaphylaxis, mouth sores, ulcerations, fever, SOB, wheezing, vision concerns -cont daily Claritin, Benadryl at hs PRN -added Pepcid, responded favorably to IV dose of Methylprednisolone with reported improvement in hives -considering response with Methylprednisolone will maintain course of Cefepime, less suspicion for cephalosporin reaction #chest discomfort -no complaints #Hypertension -intolerance of ARB and recent angioedema while on losartan -SBP with slight elevation, will monitor while in hospital -SBP trending 160s/170s, will add CCB (previous reaction to ACEi/ARB with documented cough and angioedema) #venous stasis -Outpatient follow-up -pending arterial duplex study of RLE #DVT prophylaxis: Lovenox Dispo: Home after D/C Admission and Anticipated Discharge Date Admission Date: June 18, 2025 Subjective Patient sitting up in bed this am being seen by wound care nurse. Eating and drinking well. States his hives have almost resolved since receiving IV Methylprednisolone last evening. Reports from nursing this am of elevated SBPs 160s/170s. Losartan/HCTZ recently discontinued secondary to angioedema that prompted ED visit. Review of Systems Review of Systems: All systems reviewed & are unremarkable except as noted in Subjective Physical Exam Physical Exam: GENERAL APPEARANCE: A&O. Sitting comfortably in bed. NAD. SKIN: Scattered small to larger sized wheals/hives to posterior/anterior trunk, nape of neck, BL axilla and behind ears. HEENT: Head AT/NC. Buccal mucosa is moist and pink. No ulcerations, peeling of lips or mucous membranes. NECK: No jugular venous distention. No thyroid enlargement. There is no lymphadenopathy. HEART: RRR without m/g/r. LUNGS: Normal inspiratory effort. CTA without w/r/r. ABDOMEN: No guarding or rigidity. Normoactive BS in all four quadrants. Abdomen soft and NT. MSK: No bony gross/deformities throughout. ROM intact. EXTREMITIES: No edema, No peripheral cyanosis. Two 1 in x 1 in sized ulcerations that are bordering one another with surrounding eschar to distal wound edge and yellow exudate. +DP/PT pulses. Neuro: CN 2-12 grossly intact. No focal neuro deficits PSYCHIATRIC: Normal affect. Eye contact is good. Speech is normal rate and content. Responses are appropriate. Results & Data Results & Data Vital Signs (Past 12 Hours) Vital Signs Temp Pulse Resp BP BP Pulse Ox O2 Del Method 06/21/25 10:01 167/81 H 06/21/25 09:31 83 166/85 H 96 Room Air 06/21/25 07:27 36.6 C 82 18 172/92 H 96 Room Air 06/21/25 07:00 36.7 C 80 16 197/112 H 93 Room Air 06/20/25 23:34 160/72 H Laboratory Results labs reviewed PG Care Time/CCT Total # of Minutes Spent Total Time Spent with Patient: Total time spent is greater than 50% in coordination of care (as documented) at patient's floor/unit and/or counseling patient: Coding Level of Care Code 94122 SUB INP/OBS CARE 3/50MIN Diagnoses Allergic reaction T78.40XA Cellulitis L03.116 Laterality: left Site of cellulitis: extremity Site of cellulitis of extremity: lower extremity Leg wound, right S81.801D Encounter type: subsequent encounter LEXII inhibitor-aggravated angioedema T78.3XXA; T46.4X5A Encounter type: initial encounter Chronic venous stasis I87.8 Hypertension I10 (2) Cellulitis Laterality: left Site of cellulitis: extremity Site of cellulitis of extremity: lower extremity Qualified Code(s): L03.116 - Cellulitis of left lower limb (3) Leg wound, right Encounter type: subsequent encounter Qualified Code(s): S81.801D - Unspecified open wound, right lower leg, subsequent encounter (4) LEXII inhibitor-aggravated angioedema Encounter type: initial encounter Qualified Code(s): T78.3XXA - Angioneurotic edema, initial encounter; T46.4X5A - Adverse effect of eonltxhhwaj-uyacdptfyf-ndblft inhibitors, initial encounter
--- NOTE | 2025-06-21 13:30 | Ultrasound Report ---
RIGHT LOWER EXTREMITY DOPPLER ULTRASOUND CLINICAL HISTORY: decreased ABIs, ulceration to RLE COMPARISON STUDY: No previous studies for comparison. TECHNIQUE: Grayscale, color and duplex Doppler sonography of the arterial system of the right lower e xtremity was performed. FINDINGS: Normal triphasic waveforms within the right common femoral, superficial femoral, popliteal, anterior tibial, dorsalis pedis, posterior tibial and peroneal arteries were noted. No elevated velo cities were identified. IMPRESSION: Unremarkable right lower extremity arterial Doppler ultrasound. Patent vessels without e vidence for a stenosis. ACT 112: Negative or not required by law. Electronically signed by: Tawanda Rudolph M.D. 06/21/2025 1:29 PM
--- NOTE | 2025-06-21 14:26 | Surgery Consultation ---
Date of Consultation June 21, 2025 Assessment & Plan (1) Leg wound, right: Wound was debrided at bedside Would recommend Santyl and wound care to follow the patient He will likely need further debridement at some point and should be referred to the wound clinic upon discharge Please call surgery with any questions or concerns History of Present Illness Reason for Consultation: Right lower extremity wound, need for debridement Attending Physician: Riley Abraham MD History of Present Illness This is a 75-year-old who was admitted to the hospital with a right lower extremity wound that was worsening as well as an allergic reaction to ABX he was taking. He bumped his right langley on a bike pedal about a month ago and the wound has gotten worse ever since. He denies any significant drainage. Denies any fevers or chills. Allergies Allergy/AdvReac Type Severity Reaction Status Date / Time doxycycline Allergy Intermediate Hives Verified 06/18/25 13:07 Sulfa (Sulfonamide Allergy Intermediate HIVES, Verified 06/15/25 15:32 Antibiotics) JOINT STIFFNESS oxybutynin AdvReac Unknown dry mouth, Verified 06/15/25 15:32 water retention, itchy, aggitated, low energy Home Medications Medication Instructions Recorded Confirmed Type aspirin 81 mg tablet,delayed 81 mg PO QAM 10/08/18 06/18/25 History release cholecalciferol (vitamin D3) 50 2,000 units PO QPM 10/08/18 06/18/25 History mcg (2,000 unit) capsule multivitamin (Daily Multi-Vitamin 1 tab PO QAM 02/17/19 06/18/25 History tablet) zinc 50 mg tablet 30 mg PO QPM 09/03/23 06/18/25 History clobetasol 0.05 % topical ointment 1 applic topical BID PRN allergic 08/13/24 06/18/25 Rx contact dermatitis #30 grams losartan 100 1 tab PO DAILY #90 tabs 11/30/24 06/18/25 Rx mg-hydrochlorothiazide 25 mg tablet rosuvastatin 5 mg tablet 5 mg PO DAILY #90 tabs 11/30/24 06/18/25 Rx triamcinolone acetonide 0.1 % 1 applic topical BID PRN Rash #15 01/21/25 Rx topical cream grams amoxicillin 500 mg capsule 2,000 mg PO UD PRN dental 06/16/25 06/18/25 History appointment cephalexin 500 mg capsule 0 mg PO QID for 7 days 06/16/25 06/18/25 History solifenacin 10 mg tablet 0 mg PO DAILY 06/16/25 06/18/25 History diphenhydramine HCl 25 mg capsule 0 mg PO UD PRN Allergic Reaction 06/18/25 06/18/25 History (Benadryl) doxycycline hyclate 100 mg capsule 0 mg PO BID 06/18/25 06/18/25 History hydrocortisone 1 % lotion 0 applic topical UD PRN Other 06/18/25 06/18/25 History Patient History Medical History Right clavicle fracture Diverticulosis Herniated intervertebral disc of lumbar spine Vitamin D deficiency Surgical History History of prostate surgery History of colonoscopy MULTIPLE History of total hip replacement Right - 04/20/2010, Left 07/27/2010 History of hernia repair 10/2010 Left inguinal hernia repair Family History Mother , Passed age 86 of [place] Myocardial infarction Father , Passed age 89 of CHF CHF (congestive heart failure) Arthritis Hypertension Brother No problems noted. Brother No problems noted. Brother No problems noted. Sister Thrombocythemia, essential "preleukemia" Bone marrow disorder Son No problems noted. Daughter No problems noted. 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 Feels Safe at Home: Yes Childhood Exposure to Second-Hand Smoke: Yes Diet: regular caffeine: Yes (20 oz BID) during the past year weight has: remained stable Dental Care, Regularly: Yes Physical Activity Frequency: 3-4 Times per Week Seatbelt Use: always Sunscreen Use: Yes Assistive Devices: None Review of Systems Constitutional: no fever and no chills Eyes: no blind spots and no corrective lenses Ear, Nose, Mouth, Throat: no ear pain and no tinnitus Respiratory: no cough and no dyspnea Cardiovascular: no chest pain and no dyspnea on exertion Gastrointestinal: no abdominal pain, no nausea, no vomiting, no constipation and no diarrhea/loose stools Genitourinary: no dysuria or no difficulty urinating Musculoskeletal: no back pain and no neck pain Integumentary: + skin ulcer, + wounds and + erythema Neurologic: no headache(s) and no memory loss Psychiatric: no behavioral changes and no depression Hematologic / Lymphatic: no easy bleeding and no easy bruising Physical Exam Constitutional: WD/WN, vitals as above Eyes: PERRL, conjunctivae normal, anicteric sclerae ENMT: external ear and nose normal, oropharynx normal Neck: trachea midline, no thyromegaly Respiratory: normal respiratory effort, lungs clear to auscultation Cardiovascular: RRR, no murmur, no edema Gastrointestinal (Abdomen): normal bowel sounds, soft, nontender, no hepatosplenomegaly Musculoskeletal: no cyanosis or clubbing, extremities motor strength 5/5 Skin: no rashes, warm and dry 6cm x 2cm eschar present at the right pr etibial region with some mild surrounding erythema Neurologic: PERRL, EOMI, accommodation nl, no face palsy, no dysarthria Psychiatric: A+Ox3, euthymic affect Results & Data Vital Signs (Past 12 Hours) Vital Signs Temp Pulse Resp BP BP Pulse Ox O2 Del Method 06/21/25 12:23 89 162/76 H 98 Room Air 06/21/25 11:35 36.4 C L 86 18 170/83 H 97 Room Air 06/21/25 10:01 167/81 H 06/21/25 09:31 83 166/85 H 96 Room Air 06/21/25 07:27 36.6 C 82 18 172/92 H 96 Room Air 06/21/25 07:00 36.7 C 80 16 197/112 H 93 Room Air PG Care Time/CCT Total # of Minutes Spent Total Time Spent with Patient: Total time spent is greater than 50% in coordination of care (as documented) at patient's floor/unit and/or counseling patient: Coding Level of Care Code 57803 INT INP/OBS CARE MIN Diagnoses Leg wound, right S81.801D Encounter type: subsequent encounter (1) Leg wound, right Encounter type: subsequent encounter Qualified Code(s): S81.801D - Unspecified open wound, right lower leg, subsequent encounter
--- NOTE | 2025-06-21 14:30 | Operative Report ---
PG Post Operative Report Pre & Post Diagnosis Pre-Op diagnosis right lower extremity wound Postop diagnosis right lower extremity wound I identified the patient and participated in the time-out.: Yes Procedure Excisional debridement of right lower extremity wound measuring 6 cm x 2 cm down to the level of muscle/fascia Surgeon Shadi Demarco DO Electric [employer] Installer Domi Grossman PA-C Estimated Blood Loss 0 Findings See Below Thick eschar Specimens None Drains None Anesthesia Type None Complications none Indications 75 yo male with traumatic right lower extremity wound Description of Procedure The wound was debrided at bedside with a #15 blade scalpel and forceps of necro tic skin and muscle fascia. No bleeding was encountered. This represents a excisional debridement of less than 20 cm down to the muscle fascial level. I attest to the content of the Intraoperative Record and any orders documented therein. Any exceptions are noted below.
[2025-06-21] MEDS: COLLAGENASE OINT 30 GM TUBE EXT SCH (15:31)
--- NOTE | 2025-06-22 11:12 | Infectious Disease Progress Nt ---
Date of Service June 22, 2025 Assessment & Plan (1) Leg wound, right: (2) Cellulitis of right anterior lower leg: Plan This is a 75-year-old male with a past medical history of hypertension, bilateral hip replacement, hyperlipidemia, chronic venous stasis, prostate cancer status post prostatectomy radiation therapy and ADT who presents for evaluation of a nonhealing right lower extremity wound and allergic reaction to medication. He reports that he had a fall in October 2024 secondary to weakness after undergoing radiation and chemotherapy. Since that time he has been going to physical therapy. In May 2025, he slipped off of one of the stationary bikes during physical therapy and scraped the right lower extremity. He subsequently developed a wound. His PCP prescribed a 7-day course of cephalexin with minimal improvement. He then was prescribed another 7 days of cephalexin. On the second day of therapy he developed facial and lip swelling. There was a concern for allergic reaction to cephalexin. Antibiotics were switched to doxycycline. It was thought that the lip angioedema was secondary to losartan and not antibiotics. On doxycycline leg wound remained erythematous and developed drainage. He believes he developed hives on doxycycline He presented to the ED for further evaluation. notes some of foul-smelling drainage. Doxycycline was discontinued in the ED. He denied fevers, chills, sweats, nausea, vomiting On admission, he was afebrile and hemodynamically stable. Labs WBC 6.32, BUN 29, creatinine 0.76, CRP 7.6, MRSA nasal screen negative. Wound cultures obtained and grew Pseudomonas aeruginosa, Aeromonas hydrophilia, E. coli, Morganella morganii. Lower extremity MRI shows extensive subcutaneous soft tissue edema concerning for cellulitis. No fluid collection. There is minimal periosteal and and osteo edema of the mid to distal shaft of the right tibia at the site of overlying wound. T1 marrow signal is preserved. MRI findings suggest osteitis. There is no evidence for acute osteomyelitis within the right tibia or fibula. Lower extremity arterial Doppler unremarkable. Infectious disease consulted for wound infection with Pseudomonas aeruginosa. He is currently on Cefepime. Microbiology 06/18 Wound culture #1 many GPC and few GNR on Gram stain. Pseudomonas aeruginosa (pansensitive), Morganella morganii (resistant to amp/Hellen), E. coli pansensitive. Wound culture #2 moderate GPC, few GNR, Pseudomonas aeruginosa (pansensitive), E. coli (pansensitive), Aeromonas hydrophilia/caviae (intermediate amoxicillin/clavulanate, tobramycin. Resistant ampicillin/sulbactam, cefazolin, R to cipro per micro) . Antibiotics Ceftriaxone 06/18 Cefepime 06/19current # Right lower extremity nonhealing wound with eschar and surrounding cellulitis, without osteomyelitis, Cx polymicrobial with GNR # Prostate cancer # sp BL hip replacement # Doxycycline allergy- hives # Sulfa allergy- hives Discussion: Right lower extremity wound developed post trauma in 05/2025. He had failed to improve on cephalexin. Wound cultures growing multiple gram-negative rods.MRI of lower extremity shows cellulitis without osteomyelitis. He is s/p eschar debridement, no cx. Cellulitis improving. Recommendations Continue cefepime 2 g IV every 8 hours for 7 days from debridement date 06/21- 06/28 Continue wound care Monitor for continued improvement--> pt instructed to return to ED if wound progresses post abx. Recommendations discussed with primary team. ID will sign off Rusty Baltazar MD, MPH Infectious Disease [facility] Call [phone] with questions Admission and Anticipated Discharge Date Admission Date: June 18, 2025 Subjective Subsequent visit was provided via telemedicine using two-way real-time interactive telecommunication between the patient and the telemedicine provider. For the duration of the visit, the provider was performing the assessment from a different facility than the patient. This includesuse of bluetooth stethoscope forauscultationperformed by the telepresenter that the telemedicine provider can hear if described in the physical exam. [employer] contact information: Please call [facility] Center . (Phone Number For Physician Use Only) After establishing a telemedicine visit, patient was: Patient was verified with two unique identifiers and Gave permission to continue telehealth session Time Spent with Patient: Subsequent => 25 min he is sp debridement of eschar. No cx. He feels well. Erythema improving Afebrile Anxious for dc home Physical Exam Physical Exam: NAD Anicteric sclera, EOMI,AT/NC Supple Neck Soft abdomen, NT Non labored breathing, on RA R ant calf wound s/o eschar debridement No- foul smell today. Mild surrounding erythema continues to improve AAO times 3 Cooperative, normal mood Results & Data Vital Signs (Past 12 Hours) Vital Signs Temp Pulse Resp BP Pulse Ox O2 Del Method 06/22/25 07:39 36.5 C 76 16 168/92 H 93 Room Air 06/22/25 00:02 36.5 C 67 14 155/81 H 94 Room Air Laboratory Results 06/18/25 20:30 Gram Stain - Final Leg Wound Culture - Final Pseudomonas aeruginosa Aeromonas hydrophila/caviae Escherichia coli 06/18/25 13:36 Gram Stain - Final Leg,Right Wound Culture - Final Pseudomonas aeruginosa Morganella morganii Escherichia coli Diagnostic Findings Lower Extremity MRI 06/18/25 15:17 HISTORY: 75-year-old male with right langley injury and nonhealing wound. History of vascular insufficiency. TECHNIQUE: MRI of the right tibia and fibula without contrast COMPARISON: None. FINDINGS: Evaluation is limited by motion artifact. Nonspecific bone marrow edema is present involving the proximal tibial diaphysis on Series 8 image 13 and series 5 image 20. The overlying cortex maintains normal signal intensity at this level. The overlying cortex mild nonspecific marrow edema involving the distal diaphysis of the tibia is present on series 8 image 13 and series 18 image 28. Abnormal hyperintensity of the overlying cortex and subtle erosion on series 18 image 28 suspicious for osteomyelitis. Overlying skin wound or ulceration with associated marrow edema. Extensive soft tissue edema is seen throughout the lower leg without well-developed fluid collection or abscess. Osteoarthritis of the knee and ankle. Subchondral marrow edema within the medial tibial plateau Is favored to be degenerative. IMPRESSION: * Evaluation is significantly limited by motion artifact. * Mild bone marrow edema involving the distal tibial diaphysis with overlying signal abnormality and subtle erosion of the cortex on series 18 image 28 suspicious for osteomyelitis with overlying soft tissue wound or ulceration. * Additional area of nonspecific marrow edema within the proximal diaphysis of the tibia on series is nonspecific and favored to be reactive with no overlying soft tissue wound or cortical changes. * Extensive subcutaneous soft tissue edema throughout the leg concerning for cellulitis. No well-developed fluid collection or abscess is identified. * Subchondral marrow edema involving the medial tibial plateau is favored to be degenerative due to advanced knee osteoarthritis. Electronically signed by James Cardoso 06-19-2025 08:18 AM ADDENDUM Addendum: Upon further review, there is minimal periosteal and endosteal edema of the mid to distal shaft of the right tibia at site of overlying wound. However, T1 marrow signal is preserved. Therefore, the MRI findings suggest osteitis. There is no evidence for acute osteomyelitis within the right tibia or fibula. Cellulitis is noted. There is no fluid collection to suggest abscess on unenhanced exam. Electronically signed by: Tawanda Rudolph M.D. 06/20/2025 12:44 PM Duplex Scan Lower Extremity Artery 06/21/25 10:35 RIGHT LOWER EXTREMITY DOPPLER ULTRASOUND CLINICAL HISTORY: decreased ABIs, ulceration to RLE COMPARISON STUDY: No previous studies for comparison. TECHNIQUE: Grayscale, color and duplex Doppler sonography of the arterial system of the right lower extremity was performed. FINDINGS: Normal triphasic waveforms within the right common femoral, superficial femoral, popliteal, anterior tibial, dorsalis pedis, posterior tibial and peroneal arteries were noted. No elevated velocities were identified. IMPRESSION: Unremarkable right lower extremity arterial Doppler ultrasound. Patent vessels without evidence for a stenosis. ACT 112: Negative or not required by law. Electronically signed by: Tawanda Rudolph M.D. 06/21/2025 1:29 PM Medications Administered Home Medications Medication Instructions Recorded Confirmed Last Taken aspirin 81 mg tablet,delayed 81 mg PO QAM 10/08/18 06/18/25 08/14/20 release cholecalciferol (vitamin D3) 50 2,000 units PO QPM 10/08/18 06/18/25 08/27/20 19:00 mcg (2,000 unit) capsule multivitamin (Daily Multi-Vitamin 1 tab PO QAM 02/17/19 06/18/25 08/27/20 19:00 tablet) zinc 50 mg tablet 30 mg PO QPM 09/03/23 06/18/25 Unknown clobetasol 0.05 % topical ointment 1 applic topical BID PRN allergic 08/13/24 06/18/25 Unknown contact dermatitis #30 grams losartan 100 1 tab PO DAILY #90 tabs 11/30/24 06/18/25 Unknown mg-hydrochlorothiazide 25 mg tablet rosuvastatin 5 mg tablet 5 mg PO DAILY #90 tabs 11/30/24 06/18/25 Unknown triamcinolone acetonide 0.1 % 1 applic topical BID PRN Rash #15 01/21/25 06/18/25 Unknown topical cream grams amoxicillin 500 mg capsule 2,000 mg PO UD PRN dental 06/16/25 06/18/25 Unknown appointment cephalexin 500 mg capsule 0 mg PO QID for 7 days 06/16/25 06/18/25 Unknown solifenacin 10 mg tablet 0 mg PO DAILY 06/16/25 06/18/25 Unknown diphenhydramine HCl 25 mg capsule 0 mg PO UD PRN Allergic Reaction 06/18/25 06/18/25 Unknown (Benadryl) doxycycline hyclate 100 mg capsule 0 mg PO BID 06/18/25 06/18/25 Unknown hydrocortisone 1 % lotion 0 applic topical UD PRN Other 06/18/25 06/18/25 Unknown Active Medications Generic Name Dose Route Start Last Admin Trade Name Freq PRN Reason Stop Dose Admin Acetaminophen 650 mg 06/18/25 20:00 06/21/25 21:23 Acetaminophen 325 Mg Tab PO 07/18/25 19:59 650 mg Q4H PRN Administration pain 1-3/fever Amlodipine Besylate 5 mg 06/21/25 11:15 06/22/25 08:53 Amlodipine Besylate 5 Mg Tab PO 07/21/25 11:14 5 mg QAM LUCIANA Administration Aspirin 81 mg 06/19/25 09:00 06/22/25 08:51 Aspirin 81 Mg Ectab PO 07/19/25 08:59 81 mg QAM LUCIANA Administration Cetirizine HCl 10 mg 06/19/25 09:00 06/22/25 08:51 Cetirizine Hcl 10 Mg Tablet PO 07/19/25 08:59 10 mg QAM LUCIANA Administration Collagenase 1 appln 06/21/25 13:30 06/21/25 15:31 Collagenase Oint 30 Gm Tube EXT 07/21/25 13:29 1 appln DAILY LUCIANA Administration Diphenhydramine HCl 25 mg 06/18/25 20:00 06/19/25 21:10 Diphenhydramine Capsule 25 Mg Cap PO 07/18/25 19:59 25 mg HS PRN Administration rash/itch Enoxaparin Sodium 40 mg 06/18/25 20:00 06/21/25 21:23 Enoxaparin Inj 40 Mg/0.4 Ml Syr SQ 07/18/25 19:59 40 mg Q24H LUCIANA Administration Famotidine 20 mg 06/20/25 10:45 06/22/25 08:58 Famotidine 20 Mg Tab PO 07/20/25 10:44 20 mg BID LUCIANA Administration Cefepime HCl 2,000 mg in 20 mls @ 5 mls/min 06/19/25 13:45 06/22/25 06:14 Maxipime 2000mg IV 07/31/25 13:44 5 mls/min Q8H LUCIANA Administration Protocol Multivitamins 1 tab 06/19/25 09:00 06/22/25 08:53 Multivitamin Tab PO 07/19/25 08:59 1 tab QAM LUCIANA Administration Oxybutynin Chloride 10 mg 06/19/25 09:00 06/22/25 08:52 Oxybutynin Chloride Xl 5 Mg Tabcr PO 07/19/25 08:59 Not Given DAILY LUCIANA Rosuvastatin Calcium 5 mg 06/19/25 09:00 06/22/25 08:53 Rosuvastatin Calcium 5 Mg Tab PO 07/19/25 08:59 5 mg DAILY LUCIANA Administration Tramadol HCl 50 mg 06/20/25 10:31 06/22/25 04:22 Tramadol Hcl 50 Mg Tablet PO 07/20/25 10:30 50 mg Q4H PRN Administration Pain 4-10 Triamcinolone Acetonide 1 appln 06/18/25 20:00 06/20/25 14:34 Triamcinolone Acet 0.1% Cr 15 Gm Tube TOP 07/18/25 19:59 1 appln TID PRN Administration Rash Vitamin D 50 mcg 06/18/25 21:00 06/21/25 21:23 Cholecalciferol 25 Mcg (1000 Units) Tab PO 07/18/25 20:59 50 mcg QPM LUCIANA Administration (1) Leg wound, right Encounter type: subsequent encounter Qualified Code(s): S81.801D - Unspecified open wound, right lower leg, subsequent encounter
--- NOTE | 2025-06-22 16:11 | Hospitalist Progress Note ---
Date of Service June 22, 2025 Assessment & Plan (1) Allergic reaction: (2) Cellulitis: (3) Leg wound, right: (4) LEXII inhibitor-aggravated angioedema: (5) Chronic venous stasis: (6) Hypertension: Plan #Right lower extremity cellulitis failing outpatient treatment vs early osteomyelitis: -Failed outpatient treatment with cephalexin for 10 days -Wound swab: +Pseudomonas, E coli, Morganella morganii, Aeromonas hydrophila>Cefepime sensitive -on Cefepime IV -MRSA nares: neg (no concerns for gram + coverage) -MRI of right tib/fib without contrast reviewed with radiology with addendum supporting osteitis with no evidence of osteomyelitis within the right tib/fib. -wound care consult, recommending Santyl for debridement, in lieu of time sensitivity with Santyl will consult surgery for input -surgical debridement on 06/21/[address] Demarco -discussion with ID for continued Cefepime IV post d/c for a total of 7 days from day of debridement -arranging f/u with and home health #allergic reaction/hives -presented to [facility] ED on 06/16/25 with angioedema (Losartan d/c'ed) -self reports he did not have hives during his course of being on Keflex, hives started after two days of Doxy -possible reaction to Doxycycline as hives appeared 2 days into Doxy course -no systemic signs of anaphylaxis, mouth sores, ulcerations, fever, SOB, wheezing, vision concerns -cont daily Claritin, Benadryl at hs PRN -added Pepcid, responded favorably to IV dose of Methylprednisolone with reported improvement in hives -considering response with Methylprednisolone will maintain course of Cefepime, less suspicion for cephalosporin reaction #chest discomfort -no complaints #Hypertension -intolerance of ARB and recent angioedema while on losartan -SBP with slight elevation, will monitor while in hospital -SBP trending 160s/170s, will add CCB (previous reaction to ACEi/ARB with documented cough and angioedema) -Norvasc 5mg daily #venous stasis -Outpatient follow-up #DVT prophylaxis: Lovenox Dispo: Home after D/C Admission and Anticipated Discharge Date Admission Date: June 18, 2025 Subjective Patient sitting up in bed this am being seen by wound care nurse. Eating and drinking well. Still without hives. Minimal pain to right lower leg area. States he is anxious to go home today due to a time sensitive tax form that needs to be submitted. Spoke with patient and at length regarding the nature of his wound culture results and the antibiotic therapy necessary to fully eradicate the infection. Relayed to patient in discussion with infectious disease clinician, the best c ourse of treatment is continued IV antibiotic treatment with Cefepime for a total of 1 week. He is agreeable to have this treatment at home with the aid of his . He understands that follow up with wound care will be necessary as he had a surgical debridement during his hospitalization. Review of Systems Review of Systems: All systems reviewed & are unremarkable except as noted in Subjective Physical Exam Physical Exam: GENERAL APPEARANCE: A&O. Sitting comfortably in bed. NAD. SKIN: Scattered small to larger sized wheals/hives to posterior/anterior trunk, nape of neck, BL axilla and behind ears. HEENT: Head AT/NC. Buccal mucosa is moist and pink. No ulcerations, peeling of lips or mucous membranes. NECK: No jugular venous distention. No thyroid enlargement. There is no lymphadenopathy. HEART: RRR without m/g/r. LUNGS: Normal inspiratory effort. CTA without w/r/r. ABDOMEN: No guarding or rigidity. Normoactive BS in all four quadrants. Abdomen soft and NT. MSK: No bony gross/deformities throughout. ROM intact. EXTREMITIES: No edema, No peripheral cyanosis. Right anterior lower leg wound with dressing application. C/D/I. +DP/PT pulses. Neuro: CN 2-12 grossly intact. No focal neuro deficits PSYCHIATRIC: Normal affect. Eye contact is good. Speech is normal rate and content. Responses are appropriate. Results & Data Results & Data Vital Signs (Past 12 Hours) Vital Signs Temp Pulse Resp BP Pulse Ox O2 Del Method 06/22/25 15:10 36.7 C 84 16 172/85 H 92 Room Air 06/22/25 08:30 Room Air 06/22/25 07:39 36.5 C 76 16 168/92 H 93 Room Air PG Care Time/CCT Total # of Minutes Spent Total Time Spent with Patient: Total time spent is greater than 50% in coordination of care (as documented) at patient's floor/unit and/or counseling patient: Coding Level of Care Code 14592 SUB INP/OBS CARE 3/50MIN Diagnoses Allergic reaction T78.40XA Cellulitis L03.116 Laterality: left Site of cellulitis: extremity Site of cellulitis of extremity: lower extremity Leg wound, right S81.801D Encounter type: subsequent encounter LEXII inhibitor-aggravated angioedema T78.3XXA; T46.4X5A Encounter type: initial encounter Chronic venous stasis I87.8 Hypertension I10 (2) Cellulitis Laterality: left Site of cellulitis: extremity Site of cellulitis of extr emity: lower extremity Qualified Code(s): L03.116 - Cellulitis of left lower limb (3) Leg wound, right Encounter type: subsequent encounter Qualified Code(s): S81.801D - Unspecified open wound, right lower leg, subsequent encounter (4) LEXII inhibitor-aggravated angioedema Encounter type: initial encounter Qualified Code(s): T78.3XXA - Angioneurotic edema, initial encounter; T46.4X5A - Adverse effect of [id number]-gchnfliryz-fhbbxo inhibitors, initial encounter
[2025-06-23] MEDS ORDERED: ONDANSETRON INJ 2 MG/ML 2 ML VIAL IV PRN (04:17)
[2025-06-23] MEDS: ONDANSETRON INJ 2 MG/ML 2 ML VIAL IV PRN (05:42)
[2025-06-23 07:22] VITALS: BP 162/88; PULSE 70; RESP 18; TEMP 97.5; O2SAT 95
--- NOTE | 2025-06-23 12:05 | Discharge Summary ---
Discharge Summary Date of Service June 23, 2025 Principal Dx & Hospital Course #1 = Principal Diagnosis (1) Allergic reaction: (2) Cellulitis: (3) Leg wound, right: (4) LEXII inhibitor-aggravated angioedema: (5) Chronic venous stasis: (6) Hypertension: Plan Mr. 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 He was treated outpatient with Keflex and unfortunately did not respond to oral antibiotic. He was also seen in the emergency department at [facility] on 06/16/2025 for diagnosed angioedema secondary to his losartan prescription and assessment of the right langley ulceration not improving therefore his course of antibiotic therapy was switched to doxycycline. His losartan was discontinued. In the interim while on Doxycycline, he developed hives two days into his course of treatment and presented again to the hospital on 06/18. He also relayed that the right langley ulceration had developed some blackened tissue. He was subsequently admitted and started on empiric antibiotic therapy with ceftriaxone. He had a right lower ext. MRI that revealed osteitis. He was switched to cefepime after his preliminary wound culture revealed Pseudomonas. Final wound culture with Pseudomonas, Aeromonas hydrophila, Morganella morganii, E. coli.>Cefepime sensitivity to all growth. Infectious disease was consulted. As patient has known allergy history to sulfa as described with a robust response, he unfortunately could not be discharged on oral Bactrim. In collaboration with ID best course of treatment for patient was to continue on IV cefepime at home for 1 week. Patient also had a right arterial lower extremity with patent vessels and no evidence for stenosis. Wound care was consulted for Santyl application to assist with debridement and surgery was consulted for bedside debridement. He did receive 1 dose of IV methylprednisolone as his hives did persist early on in his hospitalization despite use of daily second-generation antihistamine, addition of Pepcid, and localized steroid cream. He had complete resolution of hives after one IV dose of steroid. With further questioning patient did reveal that he had no hives during the course he was on cephalexin outpatient and his hives indeed did start 2 days after he initiated doxycycline treatment, therefore there was less suspicion that his allergy response was related to cephalosporin exposure and it was decided to continue with cefepime for IV antibiotic treatment. His BP was slightly elevated during his stay, therefore Norvasc 5mg was started as his ARB was discontinued. His lab work was stable through his stay and he remained without fever or concerns for infection not responding to initiated treatment. He will follow up outpatient with wound care and home health for continued IV antibiotic treatment. Follow up with PCP for BP surveillance and initiation of new agent. #Right lower extremity cellulitis failing outpatient treatment vs early osteomyelitis: -Failed outpatient treatment with cephalexin for 10 days -Wound swab: +Pseudomonas, E coli, Morganella morganii, Aeromonas hydrophila>Cefepime sensitive -on Cefepime IV -MRSA nares: neg (no concerns for gram + coverage) -MRI of right tib/fib without contrast reviewed with radiology with addendum supporting osteitis with no evidence of osteomyelitis within the right tib/fib. -wound care consult, recommending Santyl for debridement, in lieu of time sensitivity with Santyl will consult surgery for input -surgical debridement on 06/21/[address] Demarco -discussion with ID for continued Cefepime IV post d/c for a total of 7 days from day of debridement -arranged f/u with and home health #allergic reaction/hives -presented to [facility] ED on 06/16/25 with angioedema (Losartan d/c'ed) -self reports he did not have hives during his course of being on Keflex, hives started after two days of Doxy -possible reaction to Doxycycline as hives appeared 2 days into Doxy course -no systemic signs of anaphylaxis, mouth sores, ulcerations, fever, SOB, wheezing, vision concerns -cont daily Claritin, Benadryl at hs PRN -added Pepcid, responded favorably to IV dose of Methylprednisolone with reported improvement in hives -considering response with Methylprednisolone will maintain course of Cefepime, less suspicion for cephalosporin reaction #chest discomfort -no complaints #Hypertension -intolerance of ARB and recent angioedema while on losartan -SBP with slight elevation, will monitor while in hospital -SBP trending 160s/170s, will add CCB (previous reaction to ACEi/ARB with documented cough and angioedema) -Norvasc 5mg daily #venous stasis -Outpatient follow-up #DVT prophylaxis: Lovenox Dispo: Home after D/C with HH Admission HPI Per Admitting Provider Patient is a very pleasant 75-year-old male who presents for multiple problemsbut the most pressing is his right leg. About a month ago he was at physical therapy, he was riding on a bike, and then he switched his attention to checking the calendar on his phone for a follow-up appointment, unfortunately his leg slipped off the pedal and he hit his langley creating an ulcer. He notes that he has a degree of vascular insufficiency and therefore things always heal slowly, but since then the ulcerations have not healed. At first there was no cellulitis, but then little over a week ago he saw a physician at his PCPs office because it was starting to appear infected. She started cephalexinand during that week it definitely did not worsen, although it was a little hard to tell for sure if things were getting better or notshe favors that they might have been a little, but that the ulcer was not healing at all. Followed up with his PCP a week later, and she felt the samethat things were not clearly worse, but definitely not totally betterbut because it was not clearly worsening/not clearly failing, she opted to extend the course of cephalexin. He then ended up in the ER on 06/16 with angioedema, attributed to his losartan. That got better, and the ER physician, seeing his leg, felt that a switch of antibiotics for more deep gram-positive coverage was warranted, and started doxycycline. After his second dose of doxycycline, he had diffuse hives which persist today (his second dose of doxycycline would have been yesterday morning). The hives have been really itchy, although antihistamines have helped, and topical steroid has helped. Last night at dinner he had probably at least 30 minutes, maybe more, of substernal chest pressurehe felt it very much in line with indigestion and felt like he had to burp but nothing would come upbut he does express a little bit of concern because it was chest pressure and ensuring that it is not cardiac. Of note during the day yesterday he was doing a lot of vigorous yard work with no chest pains/pressure/undue shortness of breath. He also wonders about being able to come off of his blood pressure medicinessince stopping the losartan, they had noted at home his pressures were in the range of 120/80. He is doing physical therapy with intent of getting back to the gym. He has chronic venous stasison chart review whenever he talks about vascular insufficiency of his legs it appears to be a venous insufficiency phenomenon. I see nothing in chart review, documentation or imaging, to suggest arterial insufficiency, and he has no other notable arterial/atherosclerotic vascular disease. He does note chronic incontinence since his prostatectomy, continues to follow with his urologist. Discharge Exam GENERAL APPEARANCE: A&O. Sitting comfortably in bed. NAD. SKIN: Scattered small to larger sized wheals/hives to posterior/anterior trunk, nape of neck, BL axilla and behind ears. HEENT: Head AT/NC. Buccal mucosa is moist and pink. No ulcerations, peeling of lips or mucous membranes. NECK: No jugular venous distention. No thyroid enlargement. There is no lymphadenopathy. HEART: RRR without m/g/r. LUNGS: Normal inspiratory effort. CTA without w/r/r. ABDOMEN: No guarding or rigidity. Normoactive BS in all four quadrants. Abdomen soft and NT. MSK: No bony gross/deformities throughout. ROM intact. EXTREMITIES: No edema, No peripheral cyanosis. Right anterior lower leg wound with dressing application. C/D/I. +DP/PT pulses. Neuro: CN 2-12 grossly intact. No focal neuro deficits PSYCHIATRIC: Normal affect. Eye contact is good. Speech is normal rate and content. Responses are appropriate. Discharge Plan Discharge Items Patient Disposition: Home - Home Health Services Reason For Visit: LEG INFECTION FAILED OUTPT TREATMENT Discharge Diagnosis: Right lower extremity cellulitis Condition on Discharge: Good Activity: Resume your previous activity Non-emergency contact: Primary Care Provider Call non-emergency contact if: you have any medication questions, your symptoms worsen, your pain is not controlled, you have a fever and your temperature is above 101.5 Follow-up/Referrals: Herlinda Rudolph MD [Primary Care Provider] - 06/30/25 1:00 pm Diet: Heart Healthy Addtl Attending Provider Instructions: Mr. Pace, Donta were admitted to the hospital for a leg infection and ulceration. You have been on IV antibiotics for the treatment of the infection. You will need to continue these antibiotics upon discharge. Arrangements have been made for you to have home health come into your home to assist you with the process of receiving the antibiotics. Please follow you with your family doctor to ensure your infection has resolved and you do not need further treatment. You will need to follow up with wound care for further treatment the wound to your right lower extremity. Arrangements will be made for you to follow up on Friday for additional treatment. You had an arterial ultrasound of your right lower leg which showed you have good blood flow. Continue Tylenol as needed for pain you may experience in the right lower leg. Prior to arrival in the hospital you were treated for an allergic reaction to your blood pressure medication called Losartan. You have a significant reaction called angioedema. It is important you do not take any blood pressure medication in this category again as you could have an additional reaction. You have been started on a medication called Norvasc to help treat your blood pressure until you can follow up with your family doctor for monitoring. Your blood pressure has still been slightly elevated in the hospital so it is important you follow up to ensure you are on the right medication and dosing. Medications: Your medication list has been reviewed and reconciled upon discharge to ensure accuracy and continuity of care. An updated list of all your medications is included with your hospital discharge paperwork. Please review this list closely, and make note of any changes. We sent a new medication called Norvasc to your pharmacy. Take Norvasc once daily. Start this medication tomorrow morning as you had a dose today in the hospital. Take your medications as instructed; do not skip a dose of your medicines. Make sure all of your doctors know every medicine you are taking (including qkfe-qgl-nknnqtz medicines, vitamins, and supplements). Call your primary care provider before taking any new medicines (including over- the-counter medicines, vitamins, and supplements), because some of these may interact with your current medications, or may make your symptoms worse. Tell your primary care provider if you cannot afford your medications. Activity: You can do normal everyday activities as your body allows. Take rest breaks if you feel tired. Do not overexert. Stop activity if you have pain, shortness of breath or feel dizzy. Follow-up appointments: Make an appointment with your primary care physician within one week of discharge. A copy of this summary will be sent to them. Every time you see your primary care physician, or any other doctor, bring your medication list, and a list of questions. CONTACT YOUR PRIMARY CARE PROVIDER if you experience any of the following: Shortness of breath or difficulty breathing Fevers or chills Feeling tired with normal activity or experiencing dizziness or fainting Difficulty following your treatment plan, or difficulty taking medications CALL 911 OR GO TO THE EMERGENCY DEPARTMENT if you experience any of the following: Severe abdominal pain or nausea/vomiting Severe chest pain, or chest pain that radiates (moves) to your jaw or arm Sudden, severe shortness of breath or difficulty breathing Thank you for allowing us to participate in your care. Pending Studies at Discharge: No Stand-Alone Forms: [facility] [employer], Smoking Cessation Medications and DC Order Prescriptions: New amlodipine 5 mg Tablet 5 mg PO QAM Qty: 30 0RF Continued aspirin 81 mg tablet,delayed release (DR/EC) 81 mg PO QAM Patient Comments: 06/18- otc unable to verify cholecalciferol (vitamin D3) 2,000 unit capsule 2,000 units PO QPM Patient Comments: 06/18- otc unable to verify zinc 50 mg tablet 30 mg PO QPM Patient Comments: 06/18- otc unable to verify clobetasol 0.05 % ointment 1 applic TOP BID PRN (Reason: allergic contact dermatitis) Qty: 30 3RF Patient Comments: 06/16- no fill history unable to verify triamcinolone acetonide 0.1 % cream 1 applic TOP BID PRN (Reason: Rash) Qty: 15 1RF Patient Comments: last filled 02/04 14 day supply multivitamin [Daily Multi-Vitamin] tablet 1 tab PO QAM Patient Comments: 06/18- otc unable to verify rosuvastatin 5 mg tablet 5 mg PO DAILY Qty: 90 3RF amoxicillin 500 mg capsule 2,000 mg PO UD PRN (Reason: dental appointment) Patient Comments: 06/18- no fill history unable to verify Rx Instructions: TAKE 4 CAPSULES BY MOUTH 1 HOUR PRIOR TO DENTAL PROCEDURE solifenacin 10 mg tablet 0 mg PO DAILY Patient Comments: 06/18- no fill history unable to verify. Original directions: 10mg po daily hydrocortisone 1 % Lotion 0 applic TOPICAL UD PRN (Reason: Other) Patient Comments: otc unknown dose diphenhydramine HCl [Benadryl] 25 mg Capsule 0 mg PO UD PRN (Reason: Allergic Reaction) Patient Comments: otc unknown dose Discontinued losartan-hydrochlorothiazide 100-25 mg tablet 1 tab PO DAILY Qty: 90 3RF cephalexin 500 mg capsule 0 mg PO QID Patient Comments: filled 06/15 7 day supply #28 doxycycline hyclate 100 mg capsule 0 mg PO BID Discharge Orders: Discharge Order (Routine); Ordered 06/23/25 Ordered By: Amy Clark Admission Data Admit Date/Time: 06/18/25 15:17 Attending Provider: Jessa Ch Admit Provider: Zachery Grant Primary Care Provider: Herlinda Rudolph Other Providers: Zachery Grant; Shadi Demarco; [facility] Other Interventions: Discharge Summary Assessment (RN) Last Done: 06/23/25 11:22 Hospital Stay Data Consultations 06/18/25 14:52 ED Decision to Admit Stat 06/21/25 09:06 Consult Infectious Diseases Routine 06/21/25 11:04 Consult General Surgery Routine Diagnostic Imagining Performed 06/18/25 15:17 MRI Leg [MR lower leg RT wo con] Routine 06/21/25 10:35 US arterial duplex LE RT Routine Pending Results Patient Have Any Pending Studies at Discharge: No Discharge Instructions Given to Patient (Per Discharging Provider) Mr. Pace, Donta were admitted to the hospital for a leg infection and ulceration. You have been on IV antibiotics for the treatment of the infection. You will need to continue these antibiotics upon discharge. Arrangements have been made for you to have home health come into your home to assist you with the process of receiving the antibiotics. Please follow you with your family doctor to ensure your infection has resolved and you do not need further treatment. You will need to follow up with wound care for further treatment the wound to your right lower extremity. Arrangements will be made for you to follow up on Friday for additional treatment. You had an arterial ultrasound of your right lower leg which showed you have good blood flow. Continue Tylenol as needed for pain you may experience in the right lower leg. Prior to arrival in the hospital you were treated for an allergic reaction to your blood pressure medication called Losartan. You have a significant reaction called angioedema. It is important you do not take any blood pressure medication in this category again as you could have an additional reaction. You have been started on a medication called Norvasc to help treat your blood pressure until you can follow up with your family doctor for monitoring. Your blood pressure has still been slightly elevated in the hospital so it is important you follow up to ensure you are on the right medication and dosing. Medications: Your medication list has been reviewed and reconciled upon discharge to ensure accuracy and continuity of care. An updated list of all your medications is included with your hospital discharge paperwork. Please review this list closely, and make note of any changes. We sent a new medication called Norvasc to your pharmacy. Take Norvasc once daily. Start this medication tomorrow morning as you had a dose today in the hospital. Take your medications as instructed; do not skip a dose of your medicines. Make sure all of your doctors know every medicine you are taking (including nghd-bwr-ucapshu medicines, vitamins, and supplements). Call your primary care provider before taking any new medicines (including over- the-counter medicines, vitamins, and supplements), because some of these may interact with your current medications, or may make your symptoms worse. Tell your primary care provider if you cannot afford your medications. Activity: You can do normal everyday activities as your body allows. Take rest breaks if you feel tired. Do not overexert. Stop activity if you have pain, shortness of breath or feel dizzy. Follow-up appointments: Make an appointment with your primary care physician within one week of discharge. A copy of this summary will be sent to them. Every time you see your primary care physician, or any other doctor, bring your medication list, and a list of questions. CONTACT YOUR PRIMARY CARE PROVIDER if you experience any of the following: Shortness of breath or difficulty breathing Fevers or chills Feeling tired with normal activity or experiencing dizziness or fainting Difficulty following your treatment plan, or difficulty taking medications CALL 911 OR GO TO THE EMERGENCY DEPARTMENT if you experience any of the fol lowing: Severe abdominal pain or nausea/vomiting Severe chest pain, or chest pain that radiates (moves) to your jaw or arm Sudden, severe shortness of breath or difficulty breathing Thank you for allowing us to participate in your care. Total Time Total Time Spent Total Time Spent (In Minutes): 50 minutes Coding Level of Care Code 11604 INP/OBS DISCH >30 MIN Diagnoses Allergic reaction T78.40XA Cellulitis L03.116 Laterality: left Site of cellulitis: extremity Site of cellulitis of extremity: lower extremity Leg wound, right S81.801D Encounter type: subsequent encounter LEXII inhibitor-aggravated angioedema T78.3XXA; T46.4X5A Encounter type: initial encounter Chronic venous stasis I87.8 Hypertension I10
== END 2025-06-23 12:12 | disposition home health service (06) | DRG 580 ==
LOC: ED 12:33 → SUATTDRO 15:17 → 3E 15:17
DX: T36.4X5A Adverse effect of tetracyclines, initial encounter; H90.6 Mixed conductive and sensorineural hearing loss, bilateral; T78.3XXA Angioneurotic edema, initial encounter; Z92.21 Personal history of antineoplastic chemotherapy; I96 Gangrene, not elsewhere classified; B96.5 Pseudomonas (aeruginosa) (mallei) (pseudomallei) as the cause of diseases classified elsewhere; L97.918 Non-pressure chronic ulcer of unspecified part of right lower leg with other specified severity; Z79.899 Other long term (current) drug therapy; Z88.2 Allergy status to sulfonamides; Z88.1 Allergy status to other antibiotic agents; R07.89 Other chest pain; Z96.643 Presence of artificial hip joint, bilateral; Z85.46 Personal history of malignant neoplasm of prostate; I10 Essential (primary) hypertension; E78.5 Hyperlipidemia, unspecified; L03.115 Cellulitis of right lower limb; B96.20 Unspecified Escherichia coli [E. coli] as the cause of diseases classified elsewhere; Z79.82 Long term (current) use of aspirin; B96.4 Proteus (mirabilis) (morganii) as the cause of diseases classified elsewhere; M17.12 Unilateral primary osteoarthritis, left knee; I87.8 Other specified disorders of veins; R32 Unspecified urinary incontinence; B96.89 Other specified bacterial agents as the cause of diseases classified elsewhere; Z90.79 Acquired absence of other genital organ(s); Z92.3 Personal history of irradiation